=== PATIENT | female | born 1965 | race Caucasian/White ===

== ENCOUNTER 2021-02-12 00:50 | Emergency (ER) | payer OTHER, SELFPAY ==
[2021-02-12 00:53] VITALS: BP 174/125; PULSE 102; RESP 18; TEMP 36.7; O2SAT 98
--- NOTE | 2021-02-12 01:05 | ECG_ITS ---
Measurements Intervals [place] Rate: 94 P: 54 MO: 144 QRS: 44 QRSD: 77 T: 55 QT: 380 QTc: 476 Interpretive Statements SINUS RHYTHM NORMAL ECG Electronically Signed On 02-12-2021 7:18:08 CDT by John Borden D.O.
[2021-02-12] MEDS: SODIUM CHLORIDE 0.9% IV 1,000 ML 999 ML IV CONT (01:22)
[2021-02-12] MEDS: THIAMINE HCL 200 MG/2 ML VIAL 100 MG IV PUSH (01:23)
[2021-02-12] MEDS: LORazepam INJ (*CRX) 2 MG/ML VIAL 1 MG IV PUSH ×2 (01:24→02:47)
[2021-02-12 01:30] VITALS: BP 142/95; PULSE 95; RESP 18; O2SAT 99
[2021-02-12 01:32] VITALS: PULSE 90
[2021-02-12 01:36] LABS: Basophils Percent Auto 0.1 % (0.2-1.2); Eosinophils Percent Auto 0.1 % (0-4.4); Hematocrit 42.1 % (37.0-47.0); Hemoglobin 14.9 g/dL (12.0-15.0); Immature Granulocyte Absolute 0.02 K/mm3 (0.00-0.031); Immature Granulocyte Percent A 0.2 % (0-0.5); Lymphocytes Absolute Auto 2.11 K/mm3 (0.9-3.2); Lymphocytes Percent Auto 21.5 % (18.3-44.2); Mean Corpuscular HGB Conc 35.4 g/dl (32-36); Mean Corpuscular Volume 98.8 fl (80-100); Mean Platelet Volume 9.1 fl (7.4-10.4); Monocytes Absolute Auto 0.6 K/mm3 (0.1-0.6); Monocytes Percent Auto 6.1 % (2.6-8.5); Neutrophils Absolute Auto 7.1 K/mm3 (1.3-6.7); Platelet Count Result 240 k/mm3 (150-375); Red Blood Count 4.26 M/mm3 (4.2-5.4); Red Cell Distribution Width 12.5 % (11.5-14.5); White Blood Count 9.8 K/mm3 (4.5-10.0)
[2021-02-12 01:47] LABS: Partial Thromboplastin Time 26.8 SECONDS (22.3-36.8); Prothrombin Time 13.8 Seconds (11.1-14.7)
[2021-02-12 01:50] LABS: Ethanol < 10 mg/dL (<10)
[2021-02-12 01:51] LABS: Alanine Aminotransferase 56 U/L (4-35); Albumin Level 4.9 g/dL (3.5-5.1); Alkaline Phosphatase 228 U/L (38-126); Anion Gap 12 mmol/L (8-16); Aspartate Amino Transferase 95 U/L (14-36); Bilirubin,Total 0.8 mg/dL (0.2-1.3); Blood Urea Nitrogen 7 mg/dL (7-17); Calcium 9.7 mg/dL (8.4-10.2); Carbon Dioxide 30 mmol/L (22-30); Chloride 97 mmol/L (98-107); Estimated CRCL calculation 86 ml/min; Estimated Glomerular Filt Rate > 60; Glucose 124 mg/dL (65-105); Lipase 767 U/L (23-300); Sodium 139 mmol/L (137-145)
[2021-02-12 01:52] LABS: Lactic Acid Reflex 1.4 mmol/L (0.7-2.1)
[2021-02-12 02:00] VITALS: BP 142/105; PULSE 91; RESP 16; O2SAT 100
--- NOTE | 2021-02-12 02:00 | ED.GENADULT ---
HPI - General Adult General Chief complaint: Unspecified Stated complaint: not sleeping x 3 days Time Seen by Provider: 02/12/21 00:58 History of Present Illness HPI narrative: Patient is a 55-year-old female who presents the emergency department with chief complaint of anxiety and not sleeping. Patient reports that she decided to cut back drinking several days ago and is only had 2 drinks per day for the last several days. Patient states that she feels very anxious and has not been able to sleep. The patient states it has been approximately 3 days she has had more than 2 hours of sleep in any given day. Patient denies chest pain denies shortness of breath. Patient denies suicidal or homicidal ideation Related Data Allergies Allergy/AdvReac Type Severity Reaction Status Date / Time No Known Allergies Allergy Unknown Unverified 06/29/19 06:04 [facility] [place] Social History Social History Gender identity (if verbalized by the patient): Female Course Vital Signs Vital signs: Vital Signs Temperature 36.7 C 02/12/21 00:53 Pulse Rate 102 H 02/12/21 00:53 Respiratory Rate 18 02/12/21 00:53 Blood Pressure 174/125 H 02/12/21 00:53 Pulse Oximetry 98 02/12/21 00:53 Temperature 36.7 C 02/12/21 00:53 Pulse Rate 90 02/12/21 01:32 Respiratory Rate 18 02/12/21 00:53 Blood Pressure 174/125 H 02/12/21 00:53 Pulse Oximetry 98 02/12/21 00:53 Medical Decision Making Vital Signs Vital Signs: Vital Signs Temperature 36.7 C 02/12/21 00:53 Pulse Rate 102 H 02/12/21 00:53 Respiratory Rate 18 02/12/21 00:53 Blood Pressure 174/125 H 02/12/21 00:53 Pulse Oximetry 98 02/12/21 00:53 Temperature 36.7 C 02/12/21 00:53 Pulse Rate 90 02/12/21 01:32 Respiratory Rate 18 02/12/21 00:53 Blood Pressure 174/125 H 02/12/21 00:53 Pulse Oximetry 98 02/12/21 00:53 Lab Data Result diagrams: 02/12/21 01:29 02/12/21 01:29 Labs: Lab Results 02/12/21 02/12/21 02/12/21 Range/Units 01:29 01:29 01:29 WBC 9.8 (4.5-10.0) K/mm3 RBC 4.26 (4.2-5.4) M/mm3 Hgb 14.9 (12.0-15.0) g/dL Hct 42.1 (37.0-47.0) % MCV 98.8 (80-100) fl MCH 35.0 H (26-34) pg MCHC 35.4 (32-36) g/dl RDW 12.5 (11.5-14.5) % Plt Count 240 (150-375) k/mm3 MPV 9.1 (7.4-10.4) fl Immature Gran % (Auto) 0.2 (0-0.5) % Neut % (Auto) 72.0 (45.5-73.1) % Lymph % (Auto) 21.5 (18.3-44.2) % Curry % (Auto) 6.1 (2.6-8.5) % Eos % (Auto) 0.1 (0-4.4) % Baso % (Auto) 0.1 L (0.2-1.2) % Lymph # (Auto) 2.11 (0.9-3.2) K/mm3 Curry # (Auto) 0.6 (0.1-0.6) K/mm3 Eos # (Auto) 0.0 (0-0.3) K/mm3 Baso # (Auto) 0.0 (0.0-0.1) K/mm3 Abs Immat Gran (auto) 0.02 (0.00-0.031) K/mm3 Absolute Neuts (auto) 7.1 H (1.3-6.7) K/mm3 Absolute Nucleated RBC 0.0 (0.0-0.012) K/mm3 Nucleated RBC % 0.0 (0.0-0.2) % PT (11.1-14.7) Seconds INR APTT (22.3-36.8) SECONDS Sodium 139 (137-145) mmol/L Potassium 3.0 L (3.4-5.0) mmol/L Chloride 97 L (98-107) mmol/L Carbon Dioxide 30 (22-30) mmol/L Anion Gap 12 (8-16) mmol/L BUN 7 (7-17) mg/dL Creatinine 0.60 L (0.7-1.0) mg/dL Estim Creat Clear Calc 86 ml/min Estimated GFR > 60 (59 - ) Glucose 124 H (65-105) mg/dL Lactic Acid 1.4 (0.7-2.1) mmol/L Calcium 9.7 (8.4-10.2) mg/dL Total Bilirubin 0.8 (0.2-1.3) mg/dL AST 95 H (14-36) U/L ALT 56 H (4-35) U/L Alkaline Phosphatase 228 H (38-126) U/L Total Protein 9.0 H (6.3-8.2) g/dL Albumin 4.9 (3.5-5.1) g/dL Lipase 767 H (23-300) U/L Ethyl Alcohol (<10) mg/dL 02/12/21 02/12/21 Range/Units 01:29 01:29 WBC (4.5-10.0) K/mm3 RBC (4.2-5.4) M/mm3 Hgb (12.0-15.0) g/dL Hct (37.0-47.0) % MCV (80-100) fl MCH (26-34) pg MCHC (32-36) g/dl RDW (11.5-14.5) % Plt Count (150-375) k/mm3 MPV (7.4-10.
--- NOTE | 2021-02-12 02:15 | PC.NURSE ---
PT. unable to void at this time.
[2021-02-12 02:30] VITALS: BP 149/85; PULSE 84; RESP 14; O2SAT 98
[2021-02-12 03:00] VITALS: BP 118/62; PULSE 85; RESP 13; O2SAT 97
[2021-02-12 04:00] LABS: Appearance Urine Clear (Clear); Bilirubin Urine Negative (Negative); Blood Urine Negative (Negative); Color Urine Yellow (Yellow); Glucose Urine UA Negative (Negative); Ketones Urine Negative (Negative); Leukocyte Esterase Ur 1+ LEU/UL (Negative); Nitrate Urine Negative (Negative); Protein Urine 2+ mg/dL (Negative); Specific Grav Ur 1.015 (1.001-1.035); Urobilinogen Urine 0.2 mg/dL (<2.0)
[2021-02-12 04:12] LABS: RBC Urine 0-2 /hpf (0-2)
[2021-02-12 04:16] LABS: Add Urine Microscopic? YES
== END 2021-02-12 03:20 | disposition home or self-care (01) ==
PROVIDERS: Emergency Provider Emergency Medicine; PCP Internal Medicine Gastroenterology
DX: F41.9 Anxiety disorder, unspecified (principal); G47.00 Insomnia, unspecified; F10.10 Alcohol abuse, uncomplicated; Y90.0 Blood alcohol level of less than 20 mg/100 ml
CPT/HCPCS: 36415; 80053; 80307; 81001; 83605; 83690; 85025; 85610; 85730; 93005; 96361; 96374; 96375; 96376; 99284; J2060; J3411; J7030

== ENCOUNTER 2021-10-14 15:08 | Observation (INO) | payer OTHER, SELFPAY ==
[2021-10-14] VITALS (10 sets, daily range): BP systolic 120–134; BP diastolic 80–96; PULSE 90–104; RESP 9–20; TEMP 36.1–36.8; O2SAT 96–100; BMI 25.0
--- NOTE | ~2021-10-14 | CT_ITS ---
EXAMINATION: CT abdomen pelvis w con DATE: 10/14/2021 16:50 INDICATION: Upper abdominal pain. TECHNIQUE: Computed tomography (CT) of the abdomen and pelvis was performed with 100 mL Omnipaque 350 intravenous contrast. Automated exposure control and iterative reconstruction technique were employe d. The dose-length product was 257.34 mGy-cm. COMPARISON: CT abdomen and pelvis 06/29/2019, 06/16/19 FINDINGS: The visualized portions of the lung bases demonstrate mild atelectasis. No pleural effusion . The heart size is normal. No pericardial effusion. The liver demonstrates hypertrophy of left later al segment and surface nodularity, consistent with cirrhosis. The spleen is normal in size. The gallb ladder is normal. There are pancreatic calcifications and mild pancreatic duct dilatation, consistent with chronic pancreatitis. The adrenal glands and kidneys are normal. There are no dilated loops of bowel. The appendix is normal. There are no pathologically enlarged lymph nodes. There is no free int raperitoneal fluid. There is chronic scarring in the perineum on the left. There is mild thoracolumba r spondylosis. IMPRESSION: 1. Chronic pancreatitis. 2. Cirrhosis of the liver. Reviewed, dictated and finalized at location A. H THERAPIST
--- NOTE | 2021-10-14 15:13 | ED.ABDPAIN ---
HPI - Abdominal Pain General Chief Complaint: Abdominal Pain <Genoveva Tinoco MD - Last Filed: 10/14/21 16:30> Stated Complaint: pancreatic pain <Genoveva Tinoco MD - Last Filed: 10/14/21 16:30> Time Seen by Provider: 10/14/21 15:13 <Genoveva Tinoco MD - Last Filed: 10/14/21 16:30> Source: patient and RN notes reviewed <Genoveva Tinoco MD - Last Filed: 10/14/21 16:30> Mode of arrival: ambulatory <Genoveva Tinoco MD - Last Filed: 10/14/21 16:30> Limitations: no limitations <Genoveva Tinoco MD - Last Filed: 10/14/21 16:30> History of Present Illness HPI narrative: Patient presents with pain in the epigastric area radiating to her back, associated with nausea. Spasm, intermittent, started 4 days ago, constant in the last 24 hours. History of alcoholic pancreatitis. Patient is a smoker, had alcohol last night. Denies any drug use. Patient is fully vaccinated for COVID-19. <Genoveva Tinoco MD - Last Filed: 10/14/21 16:30> Related Data Home Medications: Home Medications Medication Instructions Recorded Confirmed multivitamin tablet 10/14/21 <Genoveva Tinoco MD - Last Filed: 10/14/21 16:30> Allergies/Adverse Reactions: Allergies Allergy/AdvReac Type Severity Reaction Status Date / Time No Known Allergies Allergy Unknown Unverified 10/14/21 15:42 <Genoveva Tinoco MD - Last Filed: 10/14/21 16:30> Review of Systems Review of Systems: CONSTITUTIONAL: Denies fever, chills, or sweats. EYES: Denies visual changes, redness, or discharge. ENT: Denies rhinorrhea, congestion, sore throat, or otalgia. CARDIOVASCULAR: Denies chest pain, palpitations, or edema. RESPIRATORY: Denies cough or dyspnea. GASTROINTESTINAL: Denies abdominal pain, nausea, vomiting, or diarrhea. GENITOURINARY: Denies dysuria or hematuria. SKIN: Denies rash or itching. MUSCULOSKELETAL: Denies back pain, joint pain, or myalgia. NEUROLOGIC: Denies headache, numbness, or weakness. PSYCHIATRIC: Denies anxiety or depression. <Genoveva Tinoco MD - Last Filed: 10/14/21 16:30> PMFSH Social History Social History: Social History Gender identity (if verbalized by the patient): Female <Genoveva Tinoco MD - Last Filed: 10/14/21 16:30> Exam Narrative: General appearance: Well-developed, well-nourished Skin: Normal color Head: Normocephalic, nontraumatic Eyes: Clear conjunctiva ENT: Oropharynx normal, ears normal, nose normal Neck: Supple, nontender Chest and respiratory: Airway patent, no respiratory distress, no accessory muscle use Heart: Regular rate/rhythm Abdomen: Soft, severe tenderness epigastric area Vascular: Normal peripheral pulses, normal capillary refill. Musculoskeletal: Normal range of motion, nontender back Neurologic: Alert and oriented ?3, [employer] is normal as tested, no gross motor deficit <Genoveva Tinoco MD - Last Filed: 10/14/21 16:30> Course Course Emergency Course: Assumed care of this patient at shift change with pending lab and CT findings. Patient continues to be in pain I did give her additional dose of her Dilaudid and Zofran. She states that that did not touch the pain. Discussed with the hospitalist agreed to admit patient for observation. <Dallin Corcoran MD - Last Filed: 10/14/21 18:19> Vital Signs Vital signs: Vital Signs Temperature 36.8 C 10/14/21 15:30 Pulse Rate 101 H 10/14/21 15:30 Respiratory Rate 16 10/14/21 15:30 Blood Pressure 133/96 H 10/14/21 15:30 Pulse Oximetry 96 10/14/21 15:30 Temperature 36.8 C 10/14/21 15:30 Pulse Rate 101 H 10/14/21 15:30 Respiratory Rate 16 10/14/21 15:30 Blood P
[2021-10-14] MEDS: MORPHINE SULFATE (*CRX) 4 MG/ML INJ IV PUSH (15:58)
[2021-10-14] MEDS: SODIUM CHLORIDE 0.9% IV 1,000 ML 999 ML IV CONT (15:58)
[2021-10-14] MEDS: ONDANSETRON INJ 4 MG/2 ML VIAL IV PUSH ×3 (15:58→21:08)
[2021-10-14 16:01] LABS: Basophils Percent Auto 0.3 % (0.2-1.2); Eosinophils Absolute Auto 0.1 K/mm3 (0-0.3); Eosinophils Percent Auto 1.2 % (0-4.4); Hematocrit 42.8 % (37.0-47.0); Hemoglobin 15.1 g/dL (12.0-15.0); Immature Granulocyte Absolute 0.01 K/mm3 (0.00-0.031); Immature Granulocyte Percent A 0.1 % (0-0.5); Lymphocytes Absolute Auto 3.46 K/mm3 (0.9-3.2); Mean Corpuscular HGB Conc 35.3 g/dl (32-36); Mean Corpuscular Hemoglobin 35.1 pg (26-34); Mean Corpuscular Volume 99.5 fl (80-100); Mean Platelet Volume 9.2 fl (7.4-10.4); Monocytes Absolute Auto 0.5 K/mm3 (0.1-0.6); Monocytes Percent Auto 5.1 % (2.6-8.5); Neutrophils Absolute Auto 5.3 K/mm3 (1.3-6.7); Neutrophils Percent Auto 56.3 % (45.5-73.1); Platelet Count Result 215 k/mm3 (150-375); Red Cell Distribution Width 12.6 % (11.5-14.5); White Blood Count 9.4 K/mm3 (4.5-10.0)
[2021-10-14 16:13] LABS: Add Urine Microscopic? YES; Alanine Aminotransferase 29 U/L (4-35); Albumin Level 4.7 g/dL (3.5-5.1); Alkaline Phosphatase 142 U/L (38-126); Anion Gap 13 mmol/L (8-16); Appearance Urine Clear (Clear); Aspartate Amino Transferase 53 U/L (14-36); Bacteria Urine 3+ /hpf; Bilirubin Urine Negative (Negative); Bilirubin,Total 0.6 mg/dL (0.2-1.3); Blood Urea Nitrogen 9 mg/dL (7-17); Blood Urine Negative (Negative); Calcium 9.6 mg/dL (8.4-10.2); Carbon Dioxide 24 mmol/L (22-30); Chloride 106 mmol/L (98-107); Color Urine Yellow (Yellow); Estimated CRCL calculation 87 ml/min; Estimated Glomerular Filt Rate > 60; Glucose 98 mg/dL (65-110); Glucose Urine UA Negative (Negative); Ketones Urine Negative (Negative); Leukocyte Esterase Ur Trace LEU/UL (Negative); Lipase 295 U/L (23-300); Nitrate Urine Negative (Negative); Potassium 3.4 mmol/L (3.4-5.0); Protein Urine Negative (Negative); RBC Urine 0-2 /hpf (0-2); Sodium 143 mmol/L (137-145); Specific Grav Ur 1.006 (1.001-1.035); Squamous Epithelial Cell Urine Occasional /hpf (Few); Urobilinogen Urine Negative mg/dL (<2.0)
[2021-10-14] MEDS: HYDROmorphone HCL INJ (*CRX) 1 MG/ML SYR IV PUSH (16:59)
[2021-10-14 17:24] LABS: Ethanol 177 mg/dL (<10)
--- NOTE | 2021-10-14 19:30 | PM.IMHP ---
H&P: HPI History of Present Illness Date/Time: 10/14/21 19:30 Chief Complaint: Abdominal pain. Narrative: This is a 56-year-old female smoker with history of alcohol abuse including history of alcohol withdrawal seizures and delirium tremens, chronic pancreatitis, history of necrotizing pancreatitis with pseudocysts, and cirrhosis of the liver who presented to the emergency department earlier today from home for evaluation of abdominal pain. She has daily pain that she attributes to her chronic pancreatitis however it has gotten much worse over the past several days. She has a difficult time describing the pain but reports that is occasionally burning in nature. The pain radiates around to the left mid back and she gives no significant aggravating factors, specifically denying that is worse with food. She has received some relief with Dilaudid received in the emergency department. Additionally she has had loose stools but she reports that is not unusual for her on that she frequently has to take Imodium. Her abdomen is intermittently bloated and she does endorse increase in belching recently. She does not take pancreatic enzymes at home. She has not had any nausea or vomiting. No significant GERD symptoms. No known history of gastritis or peptic ulcers. No fever, chills, or sweats. Review of Systems Review of Systems: Twelve systems were reviewed. No recent cold or flu symptoms. She denies chest pain shortness of breath. No cough. No melena or hematochezia. No dysuria. Patient endorses a history of alcohol withdrawal seizures and delirium tremens. She denies tremors, sweats, and hallucinations at this time. Her last drink was around noon today. Except as documented, all other systems were reviewed and are negative. [facility] Past Medical History Medical History (Updated 10/14/21 @ 21:54 by Elly Nj PA-C) Alcohol abuse Alcohol abuse Alcohol withdrawal seizure Chronic pancreatitis Cirrhosis of liver Delirium tremens Necrotizing pancreatitis (2019) Pseudocyst of pancreas (2019) Tobacco dependence Vulvar cancer (2019) Surgical History Surgical History (Updated 10/14/21 @ 21:49 by Elly Nj PA-C) History of section History of endoscopic retrograde cholangiopancreatography With history of stent placement. History of gynecologic surgery Resection of vulvar cancer. History of partial hysterectomy Family History Family History Mother Emphysema lung Father Parkinson disease Social History Social History (Updated 10/14/21 @ 21:52 by Elly Nj PA-C) Social History: Surrogate decision maker: Efrain Stern (son) or Mark Aguayohley (significant other). Code status: Full code. Smoking packs per day: 1 Smoking cigarettes per day: 20.0 Smoking status: Current every day smoker Tobacco type: cigarettes Alcohol intake: current Alcohol use details: 4-6 shots of rum per day. Substance use: never Additional living arrangements comments: The patient lives in [place]. Meds Home Medications and Allergies Home Medications Medication Instructions Recorded Confirmed Type multivitamin tablet 10/14/21 History Allergies Allergy/AdvReac Type Severity Reaction Status Date / Time No Known Allergies Allergy Unknown Unverified 10/14/21 15:42 Vital Signs Vital Signs - 24 hr 10/14/21 15:30 10/14/21 15:31 10/14/21 16:01 Temperature 98.2 F Pulse Rate 101 H 104 H 97 Respiratory Rate 16 9 L 14 Blood Pressure 133/96 H 124/94 H 130/89 Pulse Oximetry 96 98 98 10/14/21 16:31 10/14/21 16:48 10/14/21 17:02 Temperature Pulse Rate 95 95 90 Respiratory Rate 14 9 L 9 L Blood Pressure 123/80 134/82 120/86 Pulse Oximetry 97 98 10/14/21 18:30 10/14/21 19:25 10/14/21 19:53 Temperature Pulse Rate 96 100 96 Respiratory Rate 9 L 20 20 Blood Pressure 126/92 H 126/90 Pulse Oximetry 100 99 Exam N
--- NOTE | 2021-10-14 19:55 | ADMGEN ---
This patient, Marjorie Smith, was admitted to 2 Medical Room 241-. Patient/family oriented to hospital policies and general routines including ID bracelet, bed and alarms, visiting hours, pain management, procedures, bathroom and other care routines, personal items, smoking policy, room service/diet, and visiting hours. Information on how to activate the Rapid Response Team has been discussed. Patient/Family are encouraged to report perceived risks to care and to ask questions if they do not understand what they are told or what they should do.
[2021-10-14] MEDS: FAMOTIDINE 20 MG/2 ML VIAL IV PUSH (21:08)
[2021-10-14] MEDS: SODIUM CHLORIDE 0.9% IV 1,000 ML 125 ML IV CONT (21:08)
[2021-10-14] MEDS: HYDROmorphone HCL INJ (*CRX) 1 MG/ML SYR 0.5 MG IV PUSH (21:08)
[2021-10-14] MEDS: THIAMINE HCL 200 MG/2 ML VIAL 100 MG IV PUSH (21:59)
[2021-10-14] MEDS: chlordiazePOXIDE (*CRX) 25 MG CAPSULE PO (21:59)
[2021-10-15] VITALS (7 sets, daily range): BP systolic 106–131; BP diastolic 53–88; PULSE 72–85; RESP 16–20; TEMP 36.2–36.3; O2SAT 98–99
[2021-10-15] MEDS: HYDROmorphone HCL INJ (*CRX) 1 MG/ML SYR 0.5 MG IV PUSH ×6 (00:16→20:11)
[2021-10-15] MEDS: chlordiazePOXIDE (*CRX) 25 MG CAPSULE PO ×2 (04:21→13:43)
[2021-10-15] MEDS: SODIUM CHLORIDE 0.9% IV 1,000 ML 125 ML IV CONT ×3 (04:21→20:04)
[2021-10-15 05:36] LABS: Basophils Percent Auto 0.5 % (0.2-1.2); Eosinophils Absolute Auto 0.2 K/mm3 (0-0.3); Eosinophils Percent Auto 3.8 % (0-4.4); Hematocrit 38.2 % (37.0-47.0); Immature Granulocyte Absolute 0.01 K/mm3 (0.00-0.031); Immature Granulocyte Percent A 0.2 % (0-0.5); Lymphocytes Absolute Auto 2.95 K/mm3 (0.9-3.2); Lymphocytes Percent Auto 46.7 % (18.3-44.2); Mean Corpuscular Hemoglobin 35.2 pg (26-34); Mean Corpuscular Volume 103.5 fl (80-100); Mean Platelet Volume 9.5 fl (7.4-10.4); Monocytes Absolute Auto 0.4 K/mm3 (0.1-0.6); Monocytes Percent Auto 5.5 % (2.6-8.5); Neutrophils Absolute Auto 2.7 K/mm3 (1.3-6.7); Neutrophils Percent Auto 43.3 % (45.5-73.1); Platelet Count Result 177 k/mm3 (150-375); Red Blood Count 3.69 M/mm3 (4.2-5.4); Red Cell Distribution Width 12.6 % (11.5-14.5); White Blood Count 6.3 K/mm3 (4.5-10.0)
[2021-10-15 05:55] LABS: Alanine Aminotransferase 24 U/L (4-35); Albumin Level 3.6 g/dL (3.5-5.1); Alkaline Phosphatase 109 U/L (38-126); Anion Gap 4 mmol/L (8-16); Aspartate Amino Transferase 46 U/L (14-36); Bilirubin,Total 0.7 mg/dL (0.2-1.3); Blood Urea Nitrogen 12 mg/dL (7-17); Calcium 8.2 mg/dL (8.4-10.2); Carbon Dioxide 26 mmol/L (22-30); Chloride 111 mmol/L (98-107); Estimated CRCL calculation 84 ml/min; Estimated Glomerular Filt Rate > 60; Glucose 88 mg/dL (65-110); Lipase 211 U/L (23-300); Magnesium 1.7 mg/dL (1.6-2.3); Phosphorus 4.2 mg/dL (2.5-4.5); Potassium 4.3 mmol/L (3.4-5.0); Sodium 141 mmol/L (137-145)
[2021-10-15] MEDS: FOLIC ACID 1 MG TABLET PO (08:10)
[2021-10-15] MEDS: THIAMINE HCL 100 MG TABLET PO (08:10)
[2021-10-15] MEDS: THERAPEUTIC MULTIVITAMINS/MINERALS TAB (*BKC) 1 TABLET PO (08:10)
[2021-10-15] MEDS: FAMOTIDINE 20 MG/2 ML VIAL IV PUSH ×2 (08:10→20:02)
--- NOTE | 2021-10-15 08:20 | P.PNIM_ITS ---
Progress Note: A&P Assessment and Plan (1) Abdominal pain: Qualifiers: Abdominal location: epigastric Qualified Code(s): R10.13 - Epigastric pain Code(s): R10.9 - Unspecified abdominal pain Status: Acute Assessment and Plan: * chronic pain related to chronic pancreatitis, with worsening pain over the last couple of days * CT of the abdomen pelvis showed evidence of chronic pancreatitis and her lipase level is within normal limits. A * bowel rest, IV fluid rehydration, and analgesics as needed. * Pepcid b.i.d.. * Consider GI consult to evaluate other etiologies (esophagitis, gastritis, ulcers) * Still drinking * NPO for now * Trend lipase, current to 11 (2) Pancreatitis: Qualifiers: Acute pancreatitis complication: no infection or necrosis Chronicity: acute Pancreatitis type: alcohol induced Qualified Code(s): K85.20 - Alcohol induced acute pancreatitis without necrosis or infection Code(s): K85.90 - Acute pancreatitis without necrosis or infection, unspecified Status: Acute Assessment and Plan: * chronic pancreatitis as detailed above. * history of necrotizing pancreatitis and pseudocyst * Plan is as detailed above. (3) Alcohol abuse: Code(s): F10.10 - Alcohol abuse, uncomplicated Status: Acute Assessment and Plan: * Reports still drinking 2-4 drinks per night * history of alcohol withdrawal seizures and delirium tremens. * p.r.n. Librium per [facility] protocol. * thiamine and folic acid supplementation. * Given her pancreatitis and cirrhosis it is imperative that she cease drinking altogether. (4) Tobacco dependence: Code(s): F17.200 - Nicotine dependence, unspecified, uncomplicated Status: Acute Assessment and Plan: * Nicotine patch is available if needed * Will need cessation, however, drinking cessation should be priority (5) Cirrhosis of liver: Code(s): K74.60 - Unspecified cirrhosis of liver Status: Acute Assessment and Plan: * No evidence of decompensation. (6) Abnormal urinalysis: Code(s): R82.90 - Unspecified abnormal findings in urine Status: Acute Assessment and Plan: * UA showed leuk go site esterase trace amounts, 10-15 white blood cells, urine bacteria 3+ * no symptoms to suggest UTI. * Hold on antibiotics for now Time Spent With Patient Time with patient: 25 - 35 minutes Subjective Date/time seen: 11/18/21 0820 Interval history: Date/Time: 10/14/21 19:30 Narrative: This is a 56-year-old female smoker with history of alcohol abuse including history of alcohol withdrawal seizures and delirium tremens, chronic pancreatitis, history of necrotizing pancreatitis with pseudocysts, and cirrhosis of the liver who presented to the emergency department earlier today from home for evaluation of abdominal pain. She has daily pain that she attributes to her chronic pancreatitis however it has gotten much worse over the past several days. She has a difficult time describing the pain but reports that is occasionally burning in nature. The pain radiates around to the left mid back and she gives no significant aggravating factors, specifically denying that is worse with food. She has received some relief with Dilaudid received in the emergency department. Additionally she has had loose stools but she reports that is not unusual for her on that she frequently has to take Imodium. Her abdomen is intermittently bloated and she does endorse increase in belching recently. She d
--- NOTE | 2021-10-15 08:20 | PM.IMPN ---
Progress Note: A&P Assessment and Plan (1) Abdominal pain: Qualifiers: Abdominal location: epigastric Qualified Code(s): R10.13 - Epigastric pain Code(s): R10.9 - Unspecified abdominal pain Status: Acute Assessment and Plan: chronic pain related to chronic pancreatitis, with worsening pain over the last couple of days CT of the abdomen pelvis showed evidence of chronic pancreatitis and her lipase level is within normal limits. A bowel rest, IV fluid rehydration, and analgesics as needed. Pepcid b.i.d.. Consider GI consult to evaluate other etiologies (esophagitis, gastritis, ulcers) Still drinking NPO for now Trend lipase, current to 11 (2) Pancreatitis: Qualifiers: Acute pancreatitis complication: no infection or necrosis Chronicity: acute Pancreatitis type: alcohol induced Qualified Code(s): K85.20 - Alcohol induced acute pancreatitis without necrosis or infection Code(s): K85.90 - Acute pancreatitis without necrosis or infection, unspecified Status: Acute Assessment and Plan: chronic pancreatitis as detailed above. history of necrotizing pancreatitis and pseudocyst Plan is as detailed above. (3) Alcohol abuse: Code(s): F10.10 - Alcohol abuse, uncomplicated Status: Acute Assessment and Plan: Reports still drinking 2-4 drinks per night history of alcohol withdrawal seizures and delirium tremens. p.r.n. Librium per [facility] protocol. thiamine and folic acid supplementation. Given her pancreatitis and cirrhosis it is imperative that she cease drinking altogether. (4) Tobacco dependence: Code(s): F17.200 - Nicotine dependence, unspecified, uncomplicated Status: Acute Assessment and Plan: Nicotine patch is available if needed Will need cessation, however, drinking cessation should be priority (5) Cirrhosis of liver: Code(s): K74.60 - Unspecified cirrhosis of liver Status: Acute Assessment and Plan: No evidence of decompensation. (6) Abnormal urinalysis: Code(s): R82.90 - Unspecified abnormal findings in urine Status: Acute Assessment and Plan: UA showed leuk go site esterase trace amounts, 10-15 white blood cells, urine bacteria 3+ no symptoms to suggest UTI. Hold on antibiotics for now Time Spent With Patient Time with patient: 25 - 35 minutes Subjective Date/time seen: 10/15/21 0820 Interval history: Date/Time: 10/14/21 19:30 Narrative: This is a 56-year-old female smoker with history of alcohol abuse including history of alcohol withdrawal seizures and delirium tremens, chronic pancreatitis, history of necrotizing pancreatitis with pseudocysts, and cirrhosis of the liver who presented to the emergency department earlier today from home for evaluation of abdominal pain. She has daily pain that she attributes to her chronic pancreatitis however it has gotten much worse over the past several days. She has a difficult time describing the pain but reports that is occasionally burning in nature. The pain radiates around to the left mid back and she gives no significant aggravating factors, specifically denying that is worse with food. She has received some relief with Dilaudid received in the emergency department. Additionally she has had loose stools but she reports that is not unusual for her on that she frequently has to take Imodium. Her abdomen is intermittently bloated and she does endorse increase in belching recently. She does not take pancreatic enzymes at home. She has not had any nausea or vomiting. No significant GERD symptoms. No known history of gastritis or peptic ulcers. No fever, chills, or sweats. Date/time: 10/15/2021 at 8:20 a.m. Patient is resting comfortably in bed. She does state that she is having abdominal pain that is an 8/10. She states that is better than when she came in however it is still pretty intense. Lukasz
[2021-10-15] MEDS: chlordiazePOXIDE (*CRX) 25 MG CAPSULE 50 MG PO (20:03)
[2021-10-16] MEDS: HYDROmorphone HCL INJ (*CRX) 1 MG/ML SYR 0.5 MG IV PUSH ×3 (00:38→06:46)
[2021-10-16] MEDS: chlordiazePOXIDE (*CRX) 25 MG CAPSULE 50 MG PO ×2 (01:57→08:19)
[2021-10-16 03:09] VITALS: BP 114/70; PULSE 65; RESP 17; TEMP 36.6; O2SAT 99
[2021-10-16] MEDS: SODIUM CHLORIDE 0.9% IV 1,000 ML 125 ML IV CONT (03:49)
[2021-10-16 04:00] VITALS: BP 114/70
[2021-10-16 05:20] LABS: Basophils Percent Auto 0.4 % (0.2-1.2); Eosinophils Absolute Auto 0.2 K/mm3 (0-0.3); Eosinophils Percent Auto 3.6 % (0-4.4); Hematocrit 35.9 % (37.0-47.0); Hemoglobin 12.5 g/dL (12.0-15.0); Immature Granulocyte Absolute 0.02 K/mm3 (0.00-0.031); Immature Granulocyte Percent A 0.4 % (0-0.5); Lymphocytes Absolute Auto 2.12 K/mm3 (0.9-3.2); Lymphocytes Percent Auto 40.7 % (18.3-44.2); Mean Corpuscular HGB Conc 34.8 g/dl (32-36); Mean Corpuscular Hemoglobin 36.1 pg (26-34); Mean Corpuscular Volume 103.8 fl (80-100); Mean Platelet Volume 9.3 fl (7.4-10.4); Monocytes Absolute Auto 0.3 K/mm3 (0.1-0.6); Neutrophils Absolute Auto 2.6 K/mm3 (1.3-6.7); Neutrophils Percent Auto 48.9 % (45.5-73.1); Platelet Count Result 133 k/mm3 (150-375); Red Blood Count 3.46 M/mm3 (4.2-5.4); Red Cell Distribution Width 12.2 % (11.5-14.5); White Blood Count 5.2 K/mm3 (4.5-10.0)
[2021-10-16 05:29] LABS: Alanine Aminotransferase 24 U/L (4-35); Albumin Level 3.4 g/dL (3.5-5.1); Alkaline Phosphatase 117 U/L (38-126); Anion Gap 9 mmol/L (8-16); Aspartate Amino Transferase 48 U/L (14-36); Bilirubin,Total 0.7 mg/dL (0.2-1.3); Blood Urea Nitrogen 9 mg/dL (7-17); Calcium 8.5 mg/dL (8.4-10.2); Carbon Dioxide 22 mmol/L (22-30); Chloride 110 mmol/L (98-107); Estimated CRCL calculation 84 ml/min; Estimated Glomerular Filt Rate > 60; Glucose 79 mg/dL (65-110); Magnesium 1.7 mg/dL (1.6-2.3); Sodium 141 mmol/L (137-145)
[2021-10-16 07:46] LABS: Lipase 283 U/L (23-300)
[2021-10-16] MEDS: FAMOTIDINE 20 MG/2 ML VIAL IV PUSH (08:19)
[2021-10-16] MEDS: FOLIC ACID 1 MG TABLET PO (08:19)
[2021-10-16] MEDS: THIAMINE HCL 100 MG TABLET PO (08:19)
[2021-10-16] MEDS: THERAPEUTIC MULTIVITAMINS/MINERALS TAB (*BKC) 1 TABLET PO (08:19)
[2021-10-16] MEDS: MAGNESIUM SULF 2 GM/WATER 50ML 2 GM/50 ML BAG IVPB (08:19)
--- NOTE | 2021-10-16 09:00 | P.DS_ITS ---
DS: Admitting Diagnosis Discharge Date Date of service 08/16/2021 at 0900 Admitting Diagnosis Acute on chronic Pancreatitis DS: Discharge Diagnosis Discharge Diagnosis (1) Abdominal pain: Qualifiers: Abdominal location: epigastric Qualified Code(s): R10.13 - Epigastric pain Code(s): R10.9 - Unspecified abdominal pain Status: Acute Assessment and Plan: * chronic pain related to chronic pancreatitis, with worsening pain over the last couple of days * CT of the abdomen pelvis showed evidence of chronic pancreatitis and her lipase level is within normal limits. A * bowel rest, IV fluid rehydration, and analgesics as needed. * Pepcid b.i.d.. * Consider GI consult to evaluate other etiologies (esophagitis, gastritis, ulcers) * Still drinking * NPO for now * Trend lipase, current 283 (2) Pancreatitis: Qualifiers: Acute pancreatitis complication: no infection or necrosis Chronicity: acute Pancreatitis type: alcohol induced Qualified Code(s): K85.20 - Alcohol induced acute pancreatitis without necrosis or infection Code(s): K85.90 - Acute pancreatitis without necrosis or infection, unspecified Status: Acute Assessment and Plan: * chronic pancreatitis as detailed above. * history of necrotizing pancreatitis and pseudocyst * Plan is as detailed above. (3) Alcohol abuse: Code(s): F10.10 - Alcohol abuse, uncomplicated Status: Acute Assessment and Plan: * Reports still drinking 2-4 drinks per night * history of alcohol withdrawal seizures and delirium tremens. * p.r.n. Librium per [facility] protocol. * thiamine and folic acid supplementation. * Given her pancreatitis and cirrhosis it is imperative that she cease drinking altogether. (4) Tobacco dependence: Code(s): F17.200 - Nicotine dependence, unspecified, uncomplicated Status: Acute Assessment and Plan: * Nicotine patch is available if needed * Will need cessation, however, drinking cessation should be priority (5) Cirrhosis of liver: Code(s): K74.60 - Unspecified cirrhosis of liver Status: Acute Assessment and Plan: * No evidence of decompensation. (6) Abnormal urinalysis: Code(s): R82.90 - Unspecified abnormal findings in urine Status: Acute Assessment and Plan: * UA showed leuk go site esterase trace amounts, 10-15 white blood cells, urine bacteria 3+ * no symptoms to suggest UTI. * Hold on antibiotics for now DS: Summary Hospital Course Hospital Course: Patient is a 56-year-old female with a past medical history of alcohol abuse, pancreatitis, cirrhosis of liver presented to the emergency room with complaints of abdominal pain. Upon admission patient was treated with IV fluids. Lipase since admission has been at the highest of 295. Patient feels better and she is ready to go home today. Labs and lipase were been trended. Patient's urine suggests that she could have a UTI and cultures grew Gram- negative bacilli. Patient has been counseled about the need to quit drinking. Patient has a diet was advanced to low-fat which she has tolerated well. Kath jane was also treated with Librium and Ativan for alcohol withdrawal. Magnesium was low today at 1.7 replaced with 2 g and IV. Today patient is feeling better. She is eating okay and tolerating fluids. She is states that she is just really tired today. Patient denies chest pain, shortness of breath, nausea, vomiting, sweats, fevers, chills. Labs have been stable in re
--- NOTE | 2021-10-16 09:00 | PM.DS ---
DS: Admitting Diagnosis Discharge Date Date of service 08/16/2021 at 0900 Admitting Diagnosis Acute on chronic Pancreatitis DS: Discharge Diagnosis Discharge Diagnosis (1) Abdominal pain: Qualifiers: Abdominal location: epigastric Qualified Code(s): R10.13 - Epigastric pain Code(s): R10.9 - Unspecified abdominal pain Status: Acute Assessment and Plan: chronic pain related to chronic pancreatitis, with worsening pain over the last couple of days CT of the abdomen pelvis showed evidence of chronic pancreatitis and her lipase level is within normal limits. A bowel rest, IV fluid rehydration, and analgesics as needed. Pepcid b.i.d.. Consider GI consult to evaluate other etiologies (esophagitis, gastritis, ulcers) Still drinking NPO for now Trend lipase, current 283 (2) Pancreatitis: Qualifiers: Acute pancreatitis complication: no infection or necrosis Chronicity: acute Pancreatitis type: alcohol induced Qualified Code(s): K85.20 - Alcohol induced acute pancreatitis without necrosis or infection Code(s): K85.90 - Acute pancreatitis without necrosis or infection, unspecified Status: Acute Assessment and Plan: chronic pancreatitis as detailed above. history of necrotizing pancreatitis and pseudocyst Plan is as detailed above. (3) Alcohol abuse: Code(s): F10.10 - Alcohol abuse, uncomplicated Status: Acute Assessment and Plan: Reports still drinking 2-4 drinks per night history of alcohol withdrawal seizures and delirium tremens. p.r.n. Librium per [facility] protocol. thiamine and folic acid supplementation. Given her pancreatitis and cirrhosis it is imperative that she cease drinking altogether. (4) Tobacco dependence: Code(s): F17.200 - Nicotine dependence, unspecified, uncomplicated Status: Acute Assessment and Plan: Nicotine patch is available if needed Will need cessation, however, drinking cessation should be priority (5) Cirrhosis of liver: Code(s): K74.60 - Unspecified cirrhosis of liver Status: Acute Assessment and Plan: No evidence of decompensation. (6) Abnormal urinalysis: Code(s): R82.90 - Unspecified abnormal findings in urine Status: Acute Assessment and Plan: UA showed leuk go site esterase trace amounts, 10-15 white blood cells, urine bacteria 3+ no symptoms to suggest UTI. Hold on antibiotics for now DS: Summary Hospital Course Hospital Course: Patient is a 56-year-old female with a past medical history of alcohol abuse, pancreatitis, cirrhosis of liver presented to the emergency room with complaints of abdominal pain. Upon admission patient was treated with IV fluids. Lipase since admission has been at the highest of 295. Patient feels better and she is ready to go home today. Labs and lipase were been trended. Patient's urine suggests that she could have a UTI and cultures grew Gram-negative bacilli. Patient has been counseled about the need to quit drinking. Patient has a diet was advanced to low-fat which she has tolerated well. Patient was also treated with Librium and Ativan for alcohol withdrawal. Magnesium was low today at 1.7 replaced with 2 g and IV. Today patient is feeling better. She is eating okay and tolerating fluids. She is states that she is just really tired today. Patient denies chest pain, shortness of breath, nausea, vomiting, sweats, fevers, chills. Labs have been stable in remained stable throughout the visit. Time spent discussing smoking cessation with patient: more than 10 minutes Status at Discharge Functional status at discharge: independent ambulation Overall status at discharge: patient is progressing back to baseline Time Spent with Patient Time attestation: Total time spent providing and/or coordinating discharge services: 46 minutes Time spent: Greater than 30 minutes Exam C
== END 2021-10-16 12:40 | disposition home or self-care (01) ==
LOC: ANHED 18:19 → ANH2MED 23:01
PROVIDERS: Emergency Medicine; Nurse Practitioner; Physician Assistant; Admitting Provider Family Medicine; Emergency Provider Family Medicine; PCP Internal Medicine Gastroenterology; Visit Provider Internal Medicine
DX: K85.20 Alcohol induced acute pancreatitis without necrosis or infection (principal); K86.0 Alcohol-induced chronic pancreatitis; K74.60 Unspecified cirrhosis of liver; R82.90 Unspecified abnormal findings in urine; R10.13 Epigastric pain; E86.0 Dehydration; F10.10 Alcohol abuse, uncomplicated; F17.210 Nicotine dependence, cigarettes, uncomplicated
CPT/HCPCS: 36415; 74177; 80048; 80053; 80076; 80307; 81001; 83690; 83735; 84100; 85025; 87077; 87086; 87088; 87186; 96361; 96374; 96375; 96376; 99285; A9270; G0378; G0379; J1170; J2270; J2405; J3411; J3475; J7030; Q9967

== ENCOUNTER 2022-03-13 18:53 | Emergency (ER) | payer OTHER, SELFPAY ==
--- NOTE | ~2022-03-13 | CT_ITS ---
EXAMINATION: CT abdomen pelvis w con DATE: 03/13/2022 20:50 INDICATION: abdominal pain, hsx of pancreatitis TECHNIQUE: Computed tomography (CT) of the abdomen and pelvis was performed with 100 mL Omnipaque-350 intravenous contrast. Automated exposure control and iterative reconstruction technique were employe d. The dose-length product was 354.87 mGy-cm. COMPARISON: 10/14/2021. FINDINGS: Lower thorax: Basilar atelectasis. Liver: Hepatomegaly. Scattered subcentimeter hypodensities, too small to characterize but likely repr esent cysts. Biliary/Gallbladder: Gallbladder is normal. No bile duct dilation. Spleen: Mild enlargement. Pancreas: Scattered coarse calcifications. Stable pancreatic duct dilation. Mild inflammatory strandi ng at the pancreatic head. Adrenals:No mass. Kidneys: No mass, stone, or hydronephrosis. GI tract: Mild distal esophageal and gastric wall edema, with more pronounced antral wall edema. Subm ucosal fatty infiltration in the colon. No small or large bowel dilation. Normal appendix. Mesentery/Peritoneum: No ascites, mass, or free air. Enlarged remedios hepatic lymph nodes measuring up to 14 mm in short axis diameter. Retroperitoneum: No mass. Pelvis: Bladder wall thickening, otherwise the pelvic organs are within normal limits. 11 mm left ext ernal iliac lymph node. Bones/Soft Tissues: Soft tissues and body wall unremarkable. No acute osseous finding. Additional Findings: None. IMPRESSION: Mild inflammatory stranding at the pancreatic head, may represent acute on chronic pancreatitis in th e appropriate clinical context. Antral gastritis. Remedios hepatic lymphadenopathy. Left external iliac lymphadenopathy. Possible cystitis. Reviewed, dictated and finalized at location K. 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 Antral gastritis. Remedios h epatic lymphadenopathy. Left external iliac lymphadenopathy. Possible cystitis.
[2022-03-13 18:55] VITALS: BP 105/81; PULSE 100; RESP 16; TEMP 36.4; O2SAT 100
--- NOTE | 2022-03-13 19:10 | ED.ABDPAIN ---
HPI - Abdominal Pain General Chief Complaint: Abdominal Pain Stated Complaint: abdominal pain, rash Time Seen by Provider: 03/13/22 18:58 Source: patient Mode of arrival: ambulatory History of Present Illness HPI narrative: 56-year-old female history of liver disease and pancreatitis presents to the emergency department complaining of generalized and mid abdominal pain. Patient states over the last 2 months she has been drinking more heavily. Patient began developing abdominal pain a few days ago. Patient states that the pain radiates from her back to her abdomen. Patient does admit to drinking daily and heavier over the last 2 months due to living changes. Patient reports that she began developing a rash to her left leg yesterday. She reports the rash and painful and warm. Denies any itching. Patient does have a recent hospitalization for pancreatitis. Related Data Home Medications Medication Instructions Recorded Confirmed escitalopram oxalate 10 mg PO DAILY 03/13/22 03/13/22 hydrocodone-acetaminophen 7.5 - 325 tablet PO Q6H 03/13/22 03/13/22 Allergies Allergy/AdvReac Type Severity Reaction Status Date / Time No Known Allergies Allergy Unknown Verified 03/13/22 19:06 Review of Systems Review of Systems: CONSTITUTIONAL: Denies fever, chills, or sweats. EYES: Denies visual changes, redness, or discharge. ENT: Denies rhinorrhea, congestion, sore throat, or otalgia. CARDIOVASCULAR: Denies chest pain, palpitations, or edema. RESPIRATORY: Denies cough or dyspnea. GASTROINTESTINAL: Denies abdominal pain, nausea, vomiting, or diarrhea. GENITOURINARY: Denies dysuria or hematuria. SKIN: Denies rash or itching. MUSCULOSKELETAL: Denies back pain, joint pain, or myalgia. NEUROLOGIC: Denies headache, numbness, or weakness. [facility] Past Medical History Medical History (Updated 03/13/22 @ 22:15 by Julio Dahl MD) Alcohol abuse Alcohol abuse Alcohol withdrawal seizure Chronic pancreatitis Cirrhosis of liver Delirium tremens Necrotizing pancreatitis (2019) Pseudocyst of pancreas (2019) Tobacco dependence Vulvar cancer (2019) Surgical History Surgical History (Updated 10/14/21 @ 21:49 by Elly Nj PA-C) History of section History of endoscopic retrograde cholangiopancreatography With history of stent placement. History of gynecologic surgery Resection of vulvar cancer. History of partial hysterectomy Family History Family History Mother Emphysema lung Father Parkinson disease Social History Social History (Updated 10/14/21 @ 21:52 by Elly Nj PA-C) Social History: Surrogate decision maker: Efrain Stern (son) or Mark Duran (significant other). Code status: Full code. Smoking packs per day: 1 Smoking cigarettes per day: 20.0 Smoking status: Current every day smoker Tobacco type: cigarettes Alcohol intake: current Alcohol use details: 4-6 shots of rum per day. Substance use: never Additional living arrangements comments: The patient lives in [place]. Exam Narrative: APPEARANCE: Well appearing, no pain, no distress, well-nourished. HEAD: normocephalic, atraumatic. EYES: PERRLA/EOMI, conjunctivae clear. NOSE: Normal no drainage EARS:TMS clear with good light reflex. THROAT: Pharynx clear, no exudate. NECK: Supple. No adenopathy, no masses. RESPIRATORY: Airway patent, respirations nonlabored. Clear to auscultation bilaterally, no rales, rhonchi, wheezing. CARDIOVASCULAR: Regular rate and rhythm without murmurs rubs or gallops. ABDOMINAL: Soft, nontender, nondistended, normal bowel sounds MUSCULOSKELETAL: Moves all extremities. Strength/ROM intact, No edema, No calf tenderness. NEURO: Alert. Cranial nerves II through XII intact. Good gait. Good coordination SKIN: Raised erythematous and slightly rough rash to left thigh. No crepitus, no tenderness to palpation. Course Cou
[2022-03-13 20:04] LABS: Basophils Percent Auto 0.2 % (0.2-1.2); Eosinophils Percent Auto 0.1 % (0-4.4); Hematocrit 39.4 % (37.0-47.0); Hemoglobin 13.2 g/dL (12.0-15.0); Immature Granulocyte Absolute 0.07 K/mm3 (0.00-0.031); Immature Granulocyte Percent A 0.4 % (0-0.5); Lymphocytes Absolute Auto 1.97 K/mm3 (0.9-3.2); Lymphocytes Percent Auto 12.3 % (18.3-44.2); Mean Corpuscular HGB Conc 33.5 g/dl (32-36); Mean Corpuscular Volume 101.5 fl (80-100); Mean Platelet Volume 9.1 fl (7.4-10.4); Monocytes Absolute Auto 0.7 K/mm3 (0.1-0.6); Monocytes Percent Auto 4.4 % (2.6-8.5); Neutrophils Absolute Auto 13.2 K/mm3 (1.3-6.7); Neutrophils Percent Auto 82.6 % (45.5-73.1); Platelet Count Result 215 k/mm3 (150-375); Red Blood Count 3.88 M/mm3 (4.2-5.4); Red Cell Distribution Width 12.8 % (11.5-14.5)
[2022-03-13 20:13] LABS: Lactic Acid Reflex 1.4 mmol/L (0.7-2.1)
[2022-03-13 20:14] LABS: Alanine Aminotransferase 18 U/L (4-35); Albumin Level 4.5 g/dL (3.5-5.1); Alkaline Phosphatase 165 U/L (38-126); Anion Gap 13 mmol/L (8-16); Aspartate Amino Transferase 27 U/L (14-36); Bilirubin,Total 0.3 mg/dL (0.2-1.3); Blood Urea Nitrogen 7 mg/dL (7-17); Carbon Dioxide 22 mmol/L (22-30); Chloride 97 mmol/L (98-107); Estimated CRCL calculation 76 ml/min; Estimated Glomerular Filt Rate > 60; Glucose 108 mg/dL (65-110); Lipase 84 U/L (23-300); Sodium 132 mmol/L (137-145)
[2022-03-13 20:16] VITALS: BP 111/88; PULSE 83; RESP 16; O2SAT 100
[2022-03-13] MEDS: SODIUM CHLORIDE 0.9% IV 1,000 ML 999 ML IV CONT (20:20)
[2022-03-13] MEDS: HYDROmorphone HCL INJ (*CRX) 1 MG/ML SYR 0.5 MG IV PUSH (20:21)
[2022-03-13 20:44] LABS: Ethanol 33 mg/dL (<10)
[2022-03-13] MEDS: POTASSIUM CHLORIDE 20 MEQ PACKET (FOR LIQUID) 40 MEQ PO (20:56)
[2022-03-13 21:00] LABS: Hepatitis B Surface Antigen Negative (Negative)
[2022-03-13 21:00] LABS: Appearance Urine Clear (Clear); Bilirubin Urine Negative (Negative); Blood Urine Negative (Negative); Color Urine Yellow (Yellow); Glucose Urine UA Negative (Negative); Ketones Urine Negative (Negative); Leukocyte Esterase Ur Trace LEU/UL (Negative); Nitrate Urine Negative (Negative); Protein Urine Negative (Negative); Urobilinogen Urine 0.2 mg/dL (<2.0)
[2022-03-13 21:06] LABS: HAV RESULT Negative (Negative); Hepatitis B Core IgM Result Negative (Negative)
[2022-03-13 21:06] LABS: Mucus Urine Rare /lpf; Squamous Epithelial Cell Urine Occasional /hpf (Few); WBC Urine 0-3 /hpf
[2022-03-13 21:08] LABS: Add Urine Microscopic? YES
[2022-03-13 21:18] LABS: Hepatitis C Virus Antibody Negative (Negative)
== END 2022-03-13 22:24 | disposition home or self-care (01) ==
PROVIDERS: Emergency Provider Emergency Medicine; PCP Internal Medicine Gastroenterology
DX: R10.84 Generalized abdominal pain (principal); R21 Rash and other nonspecific skin eruption; K86.1 Other chronic pancreatitis; K74.60 Unspecified cirrhosis of liver; Z85.44 Personal history of malignant neoplasm of other female genital organs; F17.210 Nicotine dependence, cigarettes, uncomplicated; F10.10 Alcohol abuse, uncomplicated; Y90.1 Blood alcohol level of 20-39 mg/100 ml; K29.70 Gastritis, unspecified, without bleeding
CPT/HCPCS: 36415; 74177; 80053; 80074; 80307; 81001; 83605; 83690; 85025; 87040; 96365; 96375; 99284; A9270; J0696; J1170; J7030; Q9967

== ENCOUNTER 2022-08-20 19:08 | Emergency (ER) | payer OTHER, SELFPAY ==
[2022-08-20 19:22] VITALS: BP 148/15; PULSE 105; RESP 18; TEMP 36.2; O2SAT 100
--- NOTE | 2022-08-20 21:49 | PC.NURSE ---
Pt left around 2148
== END 2022-08-20 21:39 | disposition left against medical advice (07) ==
LOC: ANHED 21:58
PROVIDERS: PCP Internal Medicine Gastroenterology
DX: M79.652 Pain in left thigh (principal)
CPT/HCPCS: 99199

== ENCOUNTER 2025-07-14 21:32 | Emergency (ER) | payer OTHER, SELFPAY ==
[2025-07-14 21:34] VITALS: BP 137/94; PULSE 108; RESP 24; TEMP 36.9; O2SAT 99
--- OUTSIDE RECORDS SUMMARY | 2025-07-14 21:35 | XMS_ITS ---
Author Organization [facility] [address] Address [address] [place] [address] Care Team Providers Care Hr Assistant Name Role Phone Patel Larios MD Unavailable [phone] Randy Boyce MD Unavailable [phone] Jimenez Willard MD Primary Care Provider Active Problems Patient Care Coordination No te Formatting of this note migh t be different from the original. Referring provider: Dr. Patel Larios Ms. Marjorie Smith is a 59-year-old with a lung nodule. 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 She went on to receive postoperative radiation therapy completed in August of 2024. She also has a history of stage IIIA vulvar carcinoma in 2018 and is status post radical vulvectomy and bilateral pelvic lymph node dissection. On 12/11/2024 the patient underwent a PET scan which showed a new markedly hypermetabolic left apical pulmonary nodule, highly suspicious for metastatic disease. This is less likely a new lung primary given the rapid development. Post radiation changes are thought to be unlikely given focality. There is an additional 4 mm left upper lobe lung nodule adjacent to an airway too small to characterize on PET. There are postsurgical changes of a total rhinectomy and bilateral neck dissection without evidence of residual disease in the resection bed. There is decreased uptake along the left vulvectomy surgical bed is presumably postsurgical. Patient has a history of alcohol dependence and chronic pancreatitis. She is a current smoker. Patient is getting scheduled for pulmonary function testing prior to her appointment today. Patient presents today for further surgical evaluation. Problem Noted Date Diagnosed Date Left upper lobe pulmonary nodule 01/21/2025 Encounter for follow-up exam ination after completed treatment for malignant neoplasm 09/26/2024 Personal history of irradiation 09/26/2024 Squamous cell carcinoma of nasal cavity 06/07/20 24 Neck mass 05/24/2024 Primary squamous cell carcinoma of nasal cavity 05/24/2024 Cancer Staging:Clinical stage from 05/24/2024:Stage III(cT2, cN1, cM0) - Signed by Cornel Singh MD on 06/11/2024 Vulvar cancer, carcinoma 10/12/2013 Cancer Staging:Pathologic stage from 02/03/2018:FIGO Stage IIIA(i), calculated as Stage IIIA(T1b, N1b, cM0) - Signed by Cornel Singh MD on 06/11/2024 Current Treatment and Therapy Plans No current plan information found. Past Treatment and Therapy Plans No past plan information found. Radiation Treatments (No Episode) * Course [id number]/06/2024 - 09/17/2024 Treatment Period Energy Fraction Dose Fractions Total Dose Plans Planned L HN 08/06/2024 - 09/17/2024 200 30 / 6,000 Reference Points Delivered PTV_6000 08/06/2024 - 09/17/2024 6,000 Lifetime Dose Tracking * Chemical Lifetime Dose Automatic Entry Manual Entr y DLP 704 mGycm 704 mGycm 0 mGycm
--- OUTSIDE RECORDS SUMMARY | 2025-07-14 21:35 | XMS_ITS | Clinical Summary ---
Author Organization [facility] Address [address] [place] [id number] Care Team Providers Care Can Patcher Name Role Phone Unavailable Primary Care Provider Unavailabl e Social History Tobacco Use Types Packs/Day Years Used Date Smoking Tobacco: Never Assessed Comments Unknown Sex and Gender Information Value Date Recorded Sex Assigned at Not on file Legal Sex Female 4:16 PM CDT Gender Identity Not on file Sexual Orientation Not on file Plan of Treatment Health Maintenance Due Date Last Done Comments Cervical Cancer Screening Pa p Smear (Age 30 to 64) Every 3 Years 1966 Colorectal Cancer Screening Colonoscopy (10 Years) 1966 Annual Physical 1969 Hepatitis C 1984 DTaP, Tdap and Td Vaccines ( 1 - Tdap) 1985 Cervical Cancer Screening Pa p with HPV Testing (Age 30 to 64) Every 5 Years 1996 Cervical Cancer Screening with HPV 1996 Mammogram Screening 2006 Pneumococcal Vaccine: 50+ Ye ars (1 of 1 - PCV) 2016 Zoster Vaccines (1 of 2) 2016 COVID-19 Vaccine (2023-2 5 season) 2024 Meningococcal B Vaccine Aged Out No l onger eligible based on patient's age to complete this topic Meningococcal Vaccine Aged Out No sandra elzbieta eligible based on patient's age to complete this topic RSV Immunizations Under 20 Months Aged Out No longer eligible based on patient's age to complete this topic
--- OUTSIDE RECORDS SUMMARY | 2025-07-14 21:35 | XMS_ITS | Clinical Summary ---
Author Organization [facility] Address [address] [place] [address] Care Team Providers Care Excelsior Machine Feeder Name Role Phone Unknown, Provider Primary Care Provider Unavaila ble Source Comments [facility],non-owned Affiliates and Associated Physician Practices is amultiple site organization consisting of ambulatory clinics and hospital sitesin [place]. This disclosure is being madepursuant to the Care Everywhere program and may not contain all information available regarding this patient. Last updated 18.[facility] Allergies No known active allergies Medications * Be aware that medications may not be up to date on this document. Alwaysverify current medications with the patient. melatonin 3 MG tablet Take 6 mg by mouth nightly as needed for Insomnia Active multivitamin daily tablet Take 1 tablet by mouth once daily 9 Active omeprazole (PRILOSEC) 20 MG capsule Take 1 capsule by mouth 2 times daily,before breakfast and supper 60 capsule 2 9 Active senna-docusate (SENOKOT-S) 8.6-50 MG tablet Take 2 tablets by mouth once daily 60 tablet 9 Active oxyCODONE, immediate release, (Roxicodone) 5 MG tabletIndications :Alcohol withdrawal syndrome without complication (HCC),Acute pancreatitis, unspecified complication status, unspecified pancreatitis type (HCC) Take 1 (one) tablet by mouth every 6 hours as needed 8 tablet 3 Active Active Problems Patient Care Coordination No te Formatting of this note migh t be different from the original. 57 female with hx chronic pancreatitis and alcohol abuse presented to [facility] with abd pain found to have lipase 960, normal wbc, minimal LFT elevation. CT abd/pelvis showed stranding of pancreatic head and also stones in the main pancreatic duct. Vitals stable and u Gi consulted. No signs of alcohol withdrawal at this time. Fluids, pain meds. Problem Noted Date Diagnosed Date Alcohol withdrawal 12/14/2022 Tobacco use disorder 12/14/2022 Acute on chronic pancreatitis 12/11/2022 Acute pancreatitis, unspecif ied complication status, unspecified pancreatitis type 10/14/2022 Alcohol-induced acute pancreatitis 06/16/2019 Acute pancreatitis 03/21/2019 Alcohol dependence with delirium 02/15/2018 Dysuria 02/11/2018 Wound infection after surgery, initial encounter 02/11/2018 Vulva cancer 02/03/2018 Malignant neoplasm of vulva 01/10/2018 Rash and other nonspecific skin eruption 015 Vulvar intraepithelial neoplasia (HUNTER) grade 3 1 12/12/2012 Social History Tobacco Use Types Packs/Day Years Used Date Smoking Tobacco: Every Day Cigarettes Smokeless Tobacco: Never Tobacco Cessation:Ready to Q uit: Not Asked; Counseling Given: Not Answered Comments:maybe 2 or 3 cigarettes per day Alcohol Use Standard Drinks/Week Comments Yes 0 (1 standard drink = 0.6 oz pur e alcohol) 1125 mL of liquor daily AUDIT-C Answer Date Recorded Q1: How often do you have a drink containing alcohol? 4 or more times a week 12/11/2022 Q2: How many drinks containi ng alcohol do you have on a typical day when you are drinking? 3 or 4 Q3: How often do you have si x or more drinks on one occasion? Less than monthly 12/11/2022 Overall Financial Resource Strain (CARDIA) Answe r Date Recorded How hard is it for you to pa y for the very basics like food, housing, medical care, and heating? Not hard at all 12/11/2022 [facility] - Occupational Stress Questionnaire Answer Date Recorded Do you feel stress - tense, restless, nervous, or anxious, or unable to sleep at night because your mind is troubled all the time - these days? Only a little 12/11/2022 Hunger Vital Sign Answer Date Recorded Within the past 12 months, y ou worried that your food would run out before you got the money to buy more. Never true 12/11/19 23 Within the past 12 months, t he food you bought just didn't last and you didn't have money to get more. Never true 12/11/2022 PRAPARE - Transportation Answer Date Re corded In the past 12 months, has l ack of transportation kept you from medical appointments or from getting medications? No 11/28 In the past 12 months, has l ack of transportation kept you from meetings, work, or from getting things needed for daily living? No 12/11/2022 Housing Stability Vital Sign Answer Wyatt e Recorded In the last 12 months, was t here a time when you were not able to pay the mortgage or rent on time? No 12/11/2022 In the last 12 months, how many places have you lived? 1 12/11/2022 In the last 12 months, was t here a time when you did not have a steady place to sleep or slept in a nursing home (including now)? No 12/11/2022 Comments No Sex and Gender Information Value Date Recorded Sex Assigned at Not on file Legal Sex Female 6:03 PM INSIDE SALES RE[employer] Gender Identity Female 02/11/2018 4:38 PM CDT Sexual Orientation Not on file Last Filed Vital Signs Vital Sign Reading Time Taken Comments Blood Pressure 118/65 12/15/2022 12:12 PM [employer]IDE SAL[employer] RE[employer]UITER Pulse 91 12/15/2022 12:12 PM INSIDE SALES RECRUITER Temperature 37.8 C (100.1 F) 12/15/2022 12:12 PM [employer] SALES RE[employer]UITER Respiratory Rate 18 12/15/2022 12:12 PM INSIDE SALES RECRUITER Oxygen Saturation 98% 12/15/2022 12:12 PM INSIDE SALES RECRUITER Inhaled Oxygen Concentration - - Weight 69.9 kg (154 lb) 12/10/2022 1:53 PM INSIDE SALES RECRUITER Height 170.2 cm (5' 7) 12/10/2022 1:53 PM [employer]IDE SALES RE[employer]UITER Body Mass Index 24.12 12/10/2022 1:53 PM INSIDE SALES RECRUITER Plan of Treatment Health Maintenance Due Date Last Done Comments COLOGUARD (AGES 45-75) - COL ON CA SCREENING 1966 COLON MONITORING 1966 COLONOSCOPY - COLON CA SCREENING 1966 CT COLONOGRAPHY - COLON CA SCREENING 1966 Colorectal Cancer Screening 1966 FIT - COLON CA SCREENING 1966 FLEX SIG - COLON CA SCREENING 1966 MAMMOGRAM 1966 DTAP/TDAP/TD VACCINES (1 - Tdap) 1985 HEPATITIS B VACCINE (1 of 3 - 19+ 3-dose series) 1985 PNEUMOCOCCAL VACCINE 50+ (1 of 2 - PCV) 1985 PAP SMEAR 1987 ZOSTER VACCINE (1 of 2) 2016 LIPID TESTING 07/27/2024 07/27/2019 COVID-19 VACCINE (4 - 2023-2 5 season) 2024 10/25/2021, 03/12/2021, 02/05/2021 DEPRESSION SCREENING 11/28/2024 INFLUENZA VACCINE (#1) 2025 09/01/2022 HEPATITIS C SCREENING Completed 08/03/2019 , 08/03/2019 HIV SCREENING Completed 08/03/2019 HIB VACCINE Aged Out No longer eligi ble based on patient's age to complete this topic HPV VACCINE Aged Out No longer eligi ble based on patient's age to complete this topic MENINGOCOCCAL (Group B) VACCINE SHARED DECISION-MAKING Aged Out No longer eligible based on patient's age to complete this topic MENINGOCOCCAL GROUPS A/C/Y/W VACCINE Aged Out No longer eligible b ased on patient's age to complete this topic Insurance [employer] [facility] [place] [place] [address] Advance Directives * Full Code (Latest Code Status on File) Date Activated Date Inactivated Comments 12/11/2022 12:19 AM 12/15/2022 4:16 PM * Full Code Date Activated Date Inactivated Comments 06/17/2019 5:00 AM 06/21/2019 4:06 PM * Full Code Date Activated Date Inactivated Comments 02/12/2018 4:59 PM 03/17/2018 5:58 PM * Full Code Date Activated Date Inactivated Comments 02/11/2018 8:37 PM 02/12/2018 4:59 PM * Full Code Date Activated Date Inactivated Comments 02/03/2018 5:38 PM 02/07/2018 5:47 PM Care Teams Excelsior Machine Feeder Relationship Specialty Start Date End Date Unknown, Provider PCP - General 03/20/18
--- OUTSIDE RECORDS SUMMARY | 2025-07-14 21:35 | XMS_ITS | Clinical Summary ---
Author Organization [facility] Address [address] [place] [address] Phone Care Team Providers Care Senior Care Assistant Name Role Phone Jimenez Willard MD Primary Care Provider Medications oxyCODONE-acetami nophen (Percocet) 5-325 mg tabletIndications :Alcohol-induced acute pancreatitis, unspecified complication status Take 1 Tablet by mouth every 6 hours as needed for Pain, Moderate. Max Daily Amount: 4 Tablets 6 Tablet 09/01/2022 1:48 PM CDT 2 Active Active Problems Problem Noted Date Diagnosed Date Hyponatremia 08/31/2022 Alcohol-induced acute pancreatitis 08/28/2022 Transaminitis 05/26/2022 Mesenteric adenitis 05/26/2022 Acute on chronic pancreatitis 05/26/2022 Hypokalemia 05/26/2022 History of alcohol withdrawal delirium 2 Liver mass 07/25/2019 Alcoholic cirrhosis 07/24/2019 Macrocytic anemia 07/24/2019 Leukocytosis 07/24/2019 Dehydration 07/24/2019 Severe protein-calorie malnutrition 07/05/2019 Alcohol-induced acute pancreatitis with uninfect ed necrosis 07/04/2019 Alcohol abuse 07/04/2019 Tobacco abuse 07/04/2019 Fluid collection of pancreas 07/04/2019 Abdominal pain 07/04/2019 Pancreatic pseudocyst Immunizations Immunization Administration Dates Next Due (ADACEL/BOOSTRIX)(10 YR UP) TDAP VACCINE, 0.5ML, IM 08/03/2019 (PNEUMOVAX 23)(50 YRS UP) PN EUMOCOCCAL POLYSACCHARIDE (PPV23) 0.5 ML, IM 08/03/2019 (PREVNAR 20)(6 WKS UP) PNEUM OCOCCAL CONJUGATE VACCINE 20-VALENT (PCV20), POLYSACCHARIDE [id number] CONJUGATE, ADJUVANT 0.5 ML (PF) IM 09/01/2022(Deferred: - patient did not want to wait anymore and walked out) INFLUENZA VACCINE QUADRIVALE NT 6 MOS UP PF IM 09/01/2022 Family History Medical History Relation Name Comments Parkinson's Disease Father Alcohol abuse Mother Colon Cancer Neg Hx Relation Name Status Comments Father Mother Social History Tobacco Use Types Packs/Day Years Used Date Smoking Tobacco: Every Day Cigarettes Smokeless Tobacco: Never Alcohol Use Standard Drinks/Week Comments Yes 0 (1 standard drink = 0.6 oz pur e alcohol) rum Comments No Sex and Gender Information Value Date Recorded Sex Assigned at Not on file Legal Sex Female 1:43 PM CDT Gender Identity Not on file Sexual Orientation Not on file Last Filed Vital Signs Vital Sign Reading Time Taken Comments Blood Pressure 115/75 09/01/2022 12:33 PM CDT Pulse 80 09/01/2022 12:33 PM CDT Temperature 36.7 C (98.1 F) 09/01/2022 12:33 PM CDT Respiratory Rate 18 09/01/2022 12:33 PM CDT Oxygen Saturation 100% 09/01/2022 12:33 PM CDT Inhaled Oxygen Concentration - - Weight 70.3 kg (155 lb) 08/28/2022 10:36 PM CDT Height 170.2 cm (5' 7) 08/28/2022 10:36 PM CDT Body Mass Index 24.28 08/28/2022 10:36 PM CDT Plan of Treatment Health Maintenance Due Date Last Done Comments HEPATITIS B VACCINES (1 of 3 - 19+ 3-dose series) 1985 HPV/Cotest (21-29) 1987 CERVICAL CANCER SCREENING 1996 HPV/Cotest (30-65) 1996 PAP SMEAR 1996 BREAST CANCER SCREENING 2006 COLORECTAL SCREENING 2011 Colorectal Cancer Screening 2011 FIT-DNA Q 3 years 2011 FIT/FOBT Q 1 year 2011 Flex Sig/CT Colonography Q 5 years 2011 ZOSTER VACCINE (1 of 2) 2016 COVID-19 Vaccine (3 - 2024-25 season) 2024, 02/05/2021 INFLUENZA VACCINE (#1) 2025 09/01/2022 DTAP/TDAP/TD VACCINES (2 - Td or Tdap) 08/03/2029 Medical Devices Implanted Type Area Muskrat Trapper Device Identifier Shelf Expiration Date Model / Serial / Lot Stent Bili Cttn-Lng 10fr 7cm [id number] - [id number] Implanted:Qty : 1 on 07/26/2019 by Elian Galo MD at [facility] Stent N/A: Bile Duct COOK- ENDOSCOPY - BRIAN[employer]COOK [id number] 03/02/2022 [id number] / / [id number] Stent Pncrtc Geenen 7fr 9cm [id number] - [id number] Implanted:Qty : 1 on 07/26/2019 by Elian Galo MD at [facility] Stent N/A: Pancreas COOK- ENDOSCOPY - BRIAN[employer]OOK [id number] 05/14/2022 [id number] / / [id number] Stent Bili Cmps Bds Fr 5cm [id number] - [id number] Implanted:Qty : 1 on 07/31/2019 by Elian Galo MD at [facility] Stent N/A: Pancreas COOK- ENDOSCOPY - [employer]RIAN[employer]COOK [id number] 04/04/2022 [id number] / / [id number] Stent Pncrtc Geenen 7fr 12cm [id number] - [id number] Implanted:Qty : 1 on 07/31/2019 by Elian Galo MD at [facility] Stent N/A: Pancreas COOK- ENDOSCOPY - BRIAN[employer]COOK [id number] 02/14/2022 [id number] / / [id number] Stent Pncrtc Johlin 8.5fr 22cm [id number] - [id number] Implanted:Qty : 1 on 07/31/2019 by Elian Galo MD at [facility] Stent N/A: Bile Duct COOK- ENDOSCOPY - [employer]RIAN[employer]OOK [id number] 06/18/2022 [id number] / / [id number] Stent Pncrtc Geenen 7fr 12cm [id number] - [id number] Implanted:Qty : 1 on 08/08/2019 by Elian Galo MD at [facility] Stent N/A: Wojciech BERRY [id number] 02/14/2022 [id number] / / [id number] Insurance [employer] [facility] [employer] MEDICAID RX [employer] Medicare Part D RX [employer] PLANS (INTERNAL) [facility] RX [facility] Commercial Advance Directives For more information, please contact: [phone] * Full Code (Latest Code Status on File) Date Activated Date Inactivated Comments 08/28/2022 10:30 PM 09/01/2022 5:08 PM * Full Code Date Activated Date Inactivated Comments 05/26/2022 3:44 AM 05/28/2022 7:22 PM * Full Code Date Activated Date Inactivated Comments 07/24/2019 9:55 PM 08/17/2019 4:58 PM * Full Code Date Activated Date Inactivated Comments 07/04/2019 9:17 PM 07/06/2019 2:42 PM Care Teams Senior Care Assistant Relationship Specialty Start Date End Date Jimenez Willard MD [address] [place] [address] PCP - General Gastroenterology 08/24/19
--- OUTSIDE RECORDS SUMMARY | 2025-07-14 21:35 | XMS_ITS | Patient Health Record ---
Author Organization [facility] Address [address] [place] [address] Care Team Providers Care Fashion Marketer Name Role Phone Thor Garcia Primary Care Provider [phone] Reason For Referral No Information Immunizations Vaccine Route Administration Date Status Comme nts COVID-19 Moderna 1ST IM Intramuscular 02/05/2021 Administered EUA given. Isis ent tolerated well. COVID-19 Moderna 2nd IM Intramuscular 03/12/2021 Administered Plan Of Treatment No Information Insurance Providers Payer Name Payer Address Payer Phone Subscriber Number Group Number Insured Name Patient Relationship to Insured Coverage Start Date Coverage End Date [facility] Attn Claims Department [address] [place] [address] [id number] Marjorie Smith Self - patient is the insured 1 [facility] Attn Claims Department [address] [place] [address] [id number] Francoisdamon Josemy Self - patient is the insured 1
--- OUTSIDE RECORDS SUMMARY | 2025-07-14 21:35 | XMS_ITS | Encounter Summary ---
Author Organization [facility] Address [address] [place] [address] [place] [address] Care Team Providers Care Pastry Finisher Name Role Phone Unknown, Provider Primary Care Provider Unavaila ble Encounter Details Date Type Department Care Team (Late st Contact Info) Description 04/25/2018 Lab Requisition [facility] Care Pathology Lab [address] [place] [address] Molina Burnett MD Illness Social History Tobacco Use Types Packs/Day Years Used Date Smoking Tobacco: Every Day Cigarettes Smokeless Tobacco: Never Alcohol Use Standard Drinks/Week Comments Yes 0 (1 standard drink = 0.6 oz pur e alcohol) occassional Comments No Sex and Gender Information Value Date Recorded Sex Assigned at Not on file 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 Answer Date of Assessment Author No 02/11/2018 10:56 PM CDT Fátima Starr RN * Is person blind or have serious difficulty seeing? Answer Date of Assessment Author No 02/11/2018 10:56 PM KHARIT Fátima Starr RN * Does person have serious difficulty walking/climbing stairs? Answer Date of Assessment Author No 02/11/2018 10:56 PM KHARIT Fátima Starr RN * Does person have difficulty dressing/bathing? Answer Date of Assessment Author No 02/11/2018 10:56 PM Fátima De La Torre RN * Does person have difficulty doing errands alone? Answer Date of Assessment Author No 02/11/2018 10:56 PM CDT Fátima Starr RN documented as of this encounter Mental Status * Does person have difficulty concentrating/remembering/making decisions? Answer Entry Date Author No 02/11/2018 10:56 PM CDT Fátima Starr RN documented in this encounter Plan of Treatment Not on file documented as of this encounter Procedures Procedure Name Priority Date/Time Associated Diagnosis Comments PATHOLOGY TISSUE Routine 04/19/2018 1:38 PM CDT Illness documented in this encounter Results * PATHOLOGY TISSUE (04/19/2018 1:38 PM CDT) Case Report Surgical Pathology Report Case: [id number] Authorizing Provider: Molina Burnett MD Collected: 04/19/2018 01:38 PM Pathologist: Jocelyne Worley MD Received: 04/25/2018 01:39 PM Specimen: Vulva Biopsy 04/26/2018 11:02 PM T [facility] PATHOLOGY [facility] Final Diagnosis Vulva, biopsy: - Granulation tissue - No evidence of atypia or malignancy 04/26/2018 11:02 PM [facility] PATHOLOGY LAB at 2302 CDT Microscopic Description and Comment Microscopic examination substantiates the final diagnosis. 04/26/2018 11:02 PM [facility] Clinical History None provided 04/26/2018 11:02 PM [facility] Gross Description The specimen is received in one formalin-filled container labeled with the patient's name, Marjorie Smith, and vulvar bx and consists of an unoriented portion of firm yellow-villalpando tissue measuring 0.8 cm in greatest dimension which is entirely submitted in cassette A1. TF/cmb 04/26/2018 11:02 PM [facility] Disclaimer The performance characteristics of all immunohistochemical and indirect immunofluorescence stains (if any) cited in this report were determined by the Histopathology Laboratory of [facility]. Some of these tests were developed by our own laboratory and have not been cleared or approved by the US Food and Drug Administration. The FDA does not require this test to go through premarket FDA review. These tests are used for clinical purposes. They should not be regarded as investigational or for research. This laboratory is certified under the Clinical Laboratory Improvement Amendments (CLIA) as qualified to perform high complexity clinical laboratory testing. This case has been personally reviewed and interpreted by the attending (teaching) pathologist. 04/26/2018 11:02 PM CDT [facility] Embedded Images 04/26/2018 11:02 PM CDT [facility] Pathology/Cytolo gy BIOPSY OF VULVA / Unknown 04/19/2018 1:38 PM CDT 04/25/2018 1:39 PM CDT Molina Burnett MD LAB - PATHOLOGY/CYTOLOGY OR DERABLES Final Result [facility] [address] [phone] documented in this encounter Visit Diagnoses Diagnosis Illness Other unknown and unspecified cause of morbidity or mortality documented in this encounter Care Teams Pastry Finisher Relationship Specialty Start Date End Date Unknown, Provider PCP - General 03/20/18 documented as of this encounter
--- OUTSIDE RECORDS SUMMARY | 2025-07-14 21:35 | XMS_ITS | Continuity of Care Document ---
Author Organization [facility] Address [id number] [place] [address] [address] [place] [address] Phone Care Team Providers Care Patternmaker Apprentice Wood Name Role Phone Spears OD, Jaguar Unavailable Unavailable Procedures Procedure Date Special Reports Or Forms Office/outpatient Visit, Est Advance Directives Directive Yes / No Effective Date File Name No Information Encounters Encounter Description Practice Location Reason(s) For Visit Diagnoses Date Provider Providers Copied on Encounter [facility], [id number] [place] [address] [address], [place], [place], [id number], tel:[phone] [facility] No Information [phone] Spears OD Jaguar. [address] , [address], [place], [place], [facility], [place]. tel:[phone] Office/outpat ient Visit, Est [facility], [address] [place] [address] [address], [place], [place], [id number], [place] tel:[phone] [facility] No Information [phone] Krishnasamy Jeffery. [address], [place], [place], [facility], [place]. tel:[phone] Family History Family Member Type Diagnosis Age At Onset No Information Payers Payer name Insurance type Covered libertarian ID Authoriza tion(s) Medicaid [facility] [id number] Social History Type Description Quantity Date Captured Comments Sex Female Smoking Status No Information Chief Complaint And Reason For Visit No Information Reason For Referral Reason For Referral No Information History Of Present Illness Encounter Date Complaint History Of Prese nt Illness No Information Functional Status Date Functional Assessmen t No Information Instructions Date Instruction Additional Infor mation No Information Assessments Type Assessment Date No Information Patient Care Teams Name Effective Dates (start - stop) Status Members No Information
--- OUTSIDE RECORDS SUMMARY | 2025-07-14 21:35 | XMS_ITS | Clinical Summary ---
Author Organization [facility] [address] [facility] Address [address] [place] [address] Care Team Providers Care Safety Lead Name Role Phone Patel Larios MD Unavailable [phone] Randy Boyce MD Unavailable [phone] Jimenez Willard MD Primary Care Provider Allergies No known active allergies Medications albuterol HFA (PROVENTIL HFA,VENTOLIN HFA,PROAIR HFA) 90 mcg/actuation inhalerIndication s:Chronic Obstructive Pulmonary Disease Inhale 2 puffs every 4 (four) hours as needed for shortness of breath 02/16/20 24 Active tiZANidine (ZANAFLEX) 4 mg tabletIndications :Muscle Spasm Take 1 tablet (4 mg total) by mouth 3 (three) times a day as needed for muscle spasms 05/17/20 24 Active Creon 12,000-38,000 -60,000 unit capsuleIndication s:exocrine pancreatic insufficiency Take 2 capsules by mouth 3 (three) times a day with meals 05/07/20 24 Active naloxone (NARCAN) 4 mg/actuation spray,non-aerosol Administer 1 spray into affected nostril(s) as needed for opioid reversal Call 911. Administer a single spray in one nostril. Repeat every 3 minutes as needed if no or minimal response. 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),Throat pain Take 1 tablet (600 mg total) by mouth every 8 (eight) hours as needed for pain (throat pain) 90 tablet 11 01/01/20 25 026 Active triamcinolone (KENALOG) 0.1 % creamIndications: Eczema, unspecified type Apply topically 2 (two) times a day Apply to the affected area twice a day as directed 30 g 01/09/20 25 Active pentoxifylline ER (TRENtal) 400 mg CR tabletIndications :Intermittent Claudication Take 1 capsule along with Vit E 400 international units twice daily with breakfast and dinner 60 tablet 11 05/20/20 25 Active gabapentin (NEURONTIN) 600 mg tabletIndications :Neuropathic Pain Take 1 tablet (600 mg total) by mouth 3 (three) times a day 90 tablet 11 05/20/20 25 026 Active oxyCODONE (ROXICODONE) 15 mg immediate release tabletIndications :Pain Take 1 tablet (15 mg total) by mouth 2 (two) times a day 60 tablet 06/17/20 25 025 Active oxyCODONE (ROXICODONE) 15 mg immediate release tabletIndications :Pain Take 1 tablet (15 mg total) by mouth 2 (two) times a day 60 tablet 05/20/20 25 025 Discontin ued(Reord er) Active Problems Patient Care Coordination No te [...] Signed by Cornel Singh MD on 06/11/2024 Encounters Date Type Department Care Team Description 07/08/2025 Telephone [facility] [address] [place] [phone] Yesenia Maxwell NP 07/05/2025 Documentation [facility] [address] [place] [phone] Angela Malin, DUKEY RIDER 06/18/2025 Orders Only [facility] [address] [place] [phone] Yesenia Maxwell NP Cancer related pain (Primary Dx); Malignant neoplasm of nasal cavity (HCC); Lymphedema 06/17/2025 1:30 PM CDT Telemedicine [facility] [address] [place] [phone] Ramírez Larson MD PhD 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); Lymphedema; 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 06/17/2025 Documentation [facility] [address] [place] [phone] Angela Malin, DUKEY RIDER 06/14/2025 Documentation [facility] [address] [place] [phone] Angela Malin, DUKEY RIDER 05/29/2025 Telephone [facility] [address] [phone] Kinsey Brewer RN 05/29/2025 Telephone [facility] [address] [facility] [address] [place] [address] Marilyn Kaur NP 05/20/2025 2:30 PM CDT Office Visit [facility] [address] [place] [phone] Yesenia Maxwell NP Malignant neoplasm of nasal cavity (HCC) (Primary Dx); 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; Personal history of irradiation; Cancer related pain 05/20/2025 11:50 AM CDT - 05/20/2025 11:59 PM CDT Hospital Encounter [facility] [address] [place] [address] Neck mass Discharge Disposition: Discharge to home or self care 05/20/2025 Documentation [facility] [address] [place] [address], [place] [phone] Angela Malin, [facility] 05/17/2025 Documentation [facility] [address] [place] [phone] Angela Malin, [facility] 05/16/2025 11:00 AM CDT Office Visit [facility] Floor [address] [place] [address] Patel Larios MD 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); Neck mass 05/16/2025 7:26 AM CDT - 05/16/2025 11:59 PM CDT Hospital Encounter [facility] [place] [address] [facility] [address] [place] [address] 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) Discharge Disposition: Discharge to home or self care 05/14/2025 Social Work [facility] [address] [place] [address] Loretta Rm, DU[facility] RIDER 05/08/2025 Telephone [facility] [address] [place] [phone] Kinsey Brewer, RN 05/03/2025 Documentation [facility] [address] [place] [phone] Angela Malin, [facility] 05/02/2025 Telephone [facility] [address] [place] [address] Kinsey Brewer, RN Scheduling Appointments 04/23/2025 Telephone [facility] [address] [place] [phone] Yesenia Maxwell NP from Last 3 Months Immunizations Immunization Administration Dates Next Due Influenza, Quadrivalent, Spl it, Preservative Free, Intramuscular 09/01/2022 Pneumococcal Polysaccharide PPV23 08/03/2019 Tdap 08/03/2019 Surgical History Surgery Date Site/Laterality Comments ERCP 08/28/2019 - 09/27/2019 OTHER SURGICAL HISTORY 01/26/2018 - 02/25/2018 Radical Left Hemivulvectomy OTHER SURGICAL HISTORY 02/26/2018 - 03/27/2018 Vulvar Reconstruction Medical History Medical History Date Comments Gall stones Pancreatitis Vaginal cancer (HCC) Family History Medical History Relation Name Comments Prostate cancer Father Emphysema Mother Anesthesia problems Neg Hx Malig Hyperthermia Neg Hx Pseudochol deficiency Neg Hx Relation Name Status Comments Father Mother Social History Tobacco Use Types Packs/Day Years Used Date Smoking Tobacco: Every Day Cigarettes Smokeless Tobacco: Never Tobacco Cessation:Ready to Q uit: No; Counseling Given: No AUDIT-C Answer Date Recorded Q1: How often do you have a drink containing alc ohol? 2-4 times a month 06/25/2024 Q2: How many drinks containi ng alcohol do you have on a typical day when you are drinking? 1 or 2 06/25/2024 Q3: How often do you have si x or more drinks on one occasion? Never 06/25/2024 Personal Safety Answer Date Recorded Have you ever been in or are you currently in a harmful physical or emotional relationship or is someone making you feel afraid or unsafe? Denies 06/25/2024 Comments No Sex and Gender Information Value Date Recorded Sex Assigned at Not on file Legal Sex Female 10:23 AM [employer] Gender Identity Not on file Sexual Orientation Not on file Obstetrics History Last Filed Vital Signs Vital Sign Reading Time Taken Comments Blood Pressure 153/93 05/20/2025 1:37 PM CDT Pulse 85 05/20/2025 1:37 PM CDT Temperature 36.7 C (98.1 F) 05/20/2025 1:37 PM CDT Respiratory Rate 18 05/20/2025 1:37 PM CDT Oxygen Saturation 97% 05/20/2025 1:37 PM CDT Inhaled Oxygen Concentration - - Weight 58.6 kg (129 lb 3.2 oz) 05/20/2025 1:37 P M CDT Height 169.4 cm (5' 6.69) 01/10/2025 11:[address] Body Mass Index 20.42 01/10/2025 11:42 AM [employer]ER Plan of Treatment Health Maintenance Due Date Last Done Comments Breast Cancer Screening-Mammogram 1966 Cervical Cancer Screening 1966 Colon Cancer Screening-Colonoscopy 1966 Depression Screening 1966 Hepatitis C Screening 1966 Hepatitis B Screening 1984 Regular Well Visit/Exam 18-64 1984 Zoster Vaccine (1 of 2) 1985 Pneumococcal vaccine <65 (2 of 2 - PCV) 08/03/2020 08/03/2019 Covid-19 Vaccine (4 - season) 2024 10/25/2021, 03/12/2021, 02/05/2021 Influenza Vaccine (#1) 2025 09/01/2022 DTaP/Tdap/Td Vaccine (2 - Td or Tdap) 08/03/202904/2019 Procedures Procedure Name Priority Date/Time Associated Diagnosis Comments CT SOFT TISSUE NECK W CONTRAST Schedule SANTANA, Read Routine (Patient lives out of area) 05/20/2025 12:14 PM CDT Neck mass CT CHEST W CONTRAST Schedule Routine, Read Routine (OP Routine) 05/16/2025 8:03 AM CDT 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 PARANASAL SINUS MUCOSAL THICKENING. RESECTION OF LEVEL 1 LYMPH NODE ON THE LEFT SIDE WITH POSTSURGICAL CHANGES WITHOUT VISIBLE LOCAL RECURRENCE. NO NEW METASTATIC LYMPH NODES ARE IDENTIFIED. THE SKIN MARKING THE LEFT SUBMANDIBULAR REGION DOES NOT CORRESPOND TO VISIBLE MASS LESION. Electronically signed by: Ok Cortes M.D. Narrative 05/20/2025 12:22 PM CDT EXAMINATION: CT SOFT TISSUE NECK W CONTRAST ORDER DATE: 05/20/2025 12:15 PM HISTORY: History: Neck mass left-sided, difficulty swallowing neck discomfort prior surgery in the neck for tumor removal TECHNIQUE: Spiral post contrasted CT utilizing 69 MLO Optiray 350 with multiplanar reconstructions. FINDINGS: Correlation is made with prior study dated 05/24/2024, at which time a anterior nasal masses seen. Associated level 1B metastasis lymph node. Current examination demonstrates patient to be edentulous. Prevertebral soft tissues are normal. Cervical spondylosis with normal alignment. Transaxial images: Visualized posterior fossa and orbits are normal. The large basal mass seen previously appears to have been resected and treated with bony defect seen in the nasal bones and anterior nasal septum with absence of the previously seen large mass. Opacification of the posterior and middle ethmoids on the left side and left sphenoid sinus as well as bilateral maxillary sinuses. The nasopharyngeal and parapharyngeal soft tissue spaces are normal. Prevertebral soft tissues are normal. Normal vascular enhancement is seen. Parotid glands are somewhat small in size but no focal masses or inflammatory changes seen. Surgical clip seen along the anterior margin of the left sternocleidomastoid muscle along the posterior margin of the parotid gland. Cicatricial clips are seen in the area lingual submandibular space on the left side, status post removal of the previous large lymph node metastasis on the left side. No focal recurrence is seen. Postsurgical scarring seen in the left side of the neck. In the suprahyoid neck, no adenopathy is seen. The tongue and base of tongue appear to be normal with the exception of the left lateral aspect of the tongue with postsurgical changes have extended period no focal masses are however seen Infrahyoid neck demonstrates normal laryngeal cartilages. Thyroid gland is mildly prominent but homogeneous in texture with the right lobe being larger than the left with extension posterior medially. Lung apices as visualized and superior mediastinum suggest COPD. No nodules are seen. The area marked on the skin in the left submandibular region corresponding to palpable mass exhibits no discrete masses. This is the site of prior surgical intervention with scarring with mild thickening of the platysma muscles region. Coronal and sagittal images demonstrate normal alignment of the cervical spine with minor anterior subluxation C4 on C5 with degenerative changes C4-C5 C5-C6 and C6-C7. Facet joint alignment normal with degeneration multiple levels. Craniovertebral junction is normal. Procedure Note Ok Cortes MD - 05/20/2025 EXAMINATION: CT SOFT TISSUE NECK W CONTRAST ORDER DATE: 05/20/2025 12:15 PM HISTORY: History: Neck mass left-sided, difficulty swallowing neck discomfort prior surgery in the neck for tumor removal TECHNIQUE: Spiral post contrasted CT utilizing 69 MLO Optiray 350 with multiplanar reconstructions. FINDINGS: Correlation is made with prior study dated 05/24/2024, at which time a anterior nasal masses seen. Associated level 1B metastasis lymph node. Current examination demonstrates patient to be edentulous. Prevertebral soft tissues are normal. Cervical spondylosis with normal alignment. Transaxial images: Visualized posterior fossa and orbits are normal. The large basal mass seen previously appears to have been resected and treated with bony defect seen in the nasal bones and anterior nasal septum with absence of the previously seen large mass. Opacification of the posterior and middle ethmoids on the left side and left sphenoid sinus as well as bilateral maxillary sinuses. The nasopharyngeal and parapharyngeal soft tissue spaces are normal. Prevertebral soft tissues are normal. Normal vascular enhancement is seen. Parotid glands are somewhat small in size but no focal masses or inflammatory changes seen. Surgical clip seen along the anterior margin of the left sternocleidomastoid muscle along the posterior margin of the parotid gland. Cicatricial clips are seen in the area lingual submandibular space on the left side, status post removal of the previous large lymph node metastasis on the left side. No focal recurrence is seen. Postsurgical scarring seen in the left side of the neck. In the suprahyoid neck, no adenopathy is seen. The tongue and base of tongue appear to be normal with the exception of the left lateral aspect of the tongue with postsurgical changes have extended period no focal masses are however seen Infrahyoid neck demonstrates normal laryngeal cartilages. Thyroid gland is mildly prominent but homogeneous in texture with the right lobe being larger than the left with extension posterior medially. Lung apices as visualized and superior mediastinum suggest COPD. No nodules are seen. The area marked on the skin in the left submandibular region corresponding to palpable mass exhibits no discrete masses. This is the site of prior surgical intervention with scarring with mild thickening of the platysma muscles region. Coronal and sagittal images demonstrate normal alignment of the cervical spine with minor anterior subluxation C4 on C5 with degenerative changes C4-C5 C5-C6 and C6-C7. Facet joint alignment normal with degeneration multiple levels. Craniovertebral junction is normal. IMPRESSION: STATUS POST TREATMENT OF NASAL MASS WITH SURGICAL INTERVENTION IN THE RESECTION BONY DEFECT INVOLVING THE NASAL BONES AND ANTERIOR NASAL SEPTUM. PARANASAL SINUS MUCOSAL THICKENING. RESECTION OF LEVEL 1 LYMPH NODE ON THE LEFT SIDE WITH POSTSURGICAL CHANGES WITHOUT VISIBLE LOCAL RECURRENCE. NO NEW METASTATIC LYMPH NODES ARE IDENTIFIED. THE SKIN MARKING THE LEFT SUBMANDIBULAR REGION DOES NOT CORRESPOND TO VISIBLE MASS LESION. Electronically signed by: Ok Cortes M.D. us Patel Larios MD IM CT PROCEDURES Final Res ult * CT Chest W Contrast (05/16/2025 8:03 AM CDT) Anatomical Region Laterality Modality Body N/A Computed Tomogra phy 05/16/2025 8:31 AM CDT Impressions 05/16/2025 8:40 AM CDT 1. Interval wall thickening of a right upper lung bulla which likely represents infectious process. However, recommend follow-up in 3 months for further characterization. 2. Left upper lung nodule measuring 5 mm remains indeterminate. Continued attention on follow-up imaging. Dictated by: Dariusz Oliva MD The radiology attending physician has personally reviewed this study, and had reviewed and/or edited this written report and agrees with it. Electronically signed by: Humberto Coe M.D. Narrative 05/16/2025 8:40 AM CDT EXAMINATION: Computed tomography of the chest with intravenous contrast HISTORY: 60-year-old with squamous cell carcinoma nasal cavity. Assess for metastatic disease. TECHNIQUE: Transaxial computed tomographic images of the chest were obtained with intravenous contrast according to the standard protocol after the uneventful administration of 69 mL Opti-Ray 350 intravenous contrast. COMPARISON: 01/29/2025 CT. FINDINGS: There is no thoracic lymphadenopathy. Thoracic aorta and main pulmonary artery are of normal. Heart size is upper limits of normal. No pericardial effusion. No acute abnormality of the imaged upper abdomen. Pancreatic calcifications compatible chronic pancreatitis. Upper lobe predominant emphysema. No pleural effusion. No pneumothorax. No new or suspicious pulmonary nodule. A 5 mm pulmonary nodule in the left upper lung at table position -1044.3 is unchanged. New wall thickening of a right upper lung bulla at table position -1038.3. No suspicious osseous lesion. Procedure Note Humberto Coe MD - 05/16/2025 EXAMINATION: Computed tomography of the chest with intravenous contrast HISTORY: 60-year-old with squamous cell carcinoma nasal cavity. Assess for metastatic disease. TECHNIQUE: Transaxial computed tomographic images of the chest were obtained with intravenous contrast according to the standard protocol after the uneventful administration of 69 mL Opti-Ray 350 intravenous contrast. COMPARISON: 01/29/2025 CT. FINDINGS: There is no thoracic lymphadenopathy. Thoracic aorta and main pulmonary artery are of normal. Heart size is upper limits of normal. No pericardial effusion. No acute abnormality of the imaged upper abdomen. Pancreatic calcifications compatible chronic pancreatitis. Upper lobe predominant emphysema. No pleural effusion. No pneumothorax. No new or suspicious pulmonary nodule. A 5 mm pulmonary nodule in the left upper lung at table position -1044.3 is unchanged. New wall thickening of a right upper lung bulla at table position -1038.3. No suspicious osseous lesion. IMPRESSION: 1. Interval wall thickening of a right upper lung bulla which likely represents infectious process. However, recommend follow-up in 3 months for further characterization. 2. Left upper lung nodule measuring 5 mm remains indeterminate. Continued attention on follow-up imaging. Dictated by: Dariusz Oliva MD The radiology attending physician has personally reviewed this study, and had reviewed and/or edited this written report and agrees with it. Electronically signed by: Humberto Coe M.D. Patel Larios MD IMG CT PROCEDURES Final Res ult from Last 3 Months Insurance [facility] Advance Directives For more information, please contact: [phone] * Full Code (Latest Code Status on File) Date Activated Date Inactivated Comments 06/25/2024 5:38 PM 06/27/2024 7:56 PM Care Teams Safety Lead Relationship Specialty Start Date End Date Jimenez Willard MD [address] [place] [id number] PCP - General Gastroenterology 07/18/24 Patel Larios MD [address] [facility] [address] [place] [address] Medical Oncologist/Instructional Materials Director Medical Oncology 06/05/24 Randy Boyce MD [address] [facility] [address] [place] [address] Surgeon Otolaryngology 06/05/24
[2025-07-15 01:07] VITALS: BP 127/96; PULSE 96; RESP 19; O2SAT 100
[2025-07-15 01:10] VITALS: BP 136/84; PULSE 96; RESP 16; O2SAT 98
[2025-07-15 01:42] LABS: Hematocrit 35.5 % (37.0-47.0); Hemoglobin 12.3 g/dL (12.0-15.0); Immature Granulocyte Percent A 0.2 % (0-0.5); Immature Platelet Fraction Pct 1.7 % (0.9-11.2); Lymphocytes Absolute Auto 0.84 K/mm3 (0.9-3.2); Mean Corpuscular HGB Conc 34.6 g/dl (32-36); Mean Corpuscular Hemoglobin 32.1 pg (26-34); Mean Corpuscular Volume 92.7 fl (80-100); Nucleated Red Blood Cells Absolute Auto 0.000 K/mm3 (0.0-0.012); Nucleated Red Blood Cells Perc 0.0 % (0.0-0.2); Platelet Count Result 252 k/mm3 (150-375); Red Blood Count 3.83 M/mm3 (4.2-5.4); White Blood Count 6.5 K/mm3 (4.5-10.0)
--- NOTE | 2025-07-15 02:13 | ED.ABDPAIN ---
HPI - Abdominal Pain General Chief Complaint: Abdominal Pain Stated Complaint: abdominal pain Time Seen by Provider: 07/15/25 02:03 History of Present Illness HPI narrative: 60-year-old female with a history of alcohol abuse, alcoholic liver cirrhosis, alcoholic pancreatitis. She presents to the emergency department with epigastric abdominal pain radiating towards her back that feels similar to her chronic pancreatitis. States she was drinking today. Denies any recent illnesses otherwise. No nausea, fever, chills, sick contacts. No diarrhea, constipation or urinary complaints. Was otherwise in her normal state of health. Related Data Home Medications ?Medication ?Instructions ?Recorded ?Confirmed ?Last Taken ?Type escitalopram oxalate 10 mg tablet 10 mg PO DAILY 03/13/22 03/13/22 Unknown History hydrocodone 7.5 mg-acetaminophen 7.5 - 325 tablet PO Q6H 03/13/22 03/13/22 Unknown History 325 mg tablet Allergies Allergy/AdvReac Type Severity Reaction Status Date / Time No Known Allergies Allergy Unknown Verified 08/20/22 19:21 Review of Systems Review of Systems: As reviewed above in HPI PMFSH Past Medical History Medical History Cirrhosis of liver Vulvar cancer (2019) Delirium tremens Alcohol withdrawal seizure Pseudocyst of pancreas (2019) Necrotizing pancreatitis (2019) Chronic pancreatitis Alcohol abuse Tobacco dependence Alcohol abuse Surgical History Surgical History History of endoscopic retrograde cholangiopancreatography With history of stent placement. History of section History of partial hysterectomy History of gynecologic surgery Resection of vulvar cancer. Family History Family History Mother Emphysema lung Father Parkinson disease Social History Social History Social History: Surrogate decision maker: Efrain Stern (son) or Mark Duran (significant other). Code status: Full code. Smoking packs per day: 1 Smoking cigarettes per day: 20.0 Smoking status: Current every day smoker Tobacco type: cigarettes Alcohol intake: current Alcohol use details: 4-6 shots of rum per day. Substance use: never Additional living arrangements comments: The patient lives in [place]. Exam Narrative: GENERAL: [Well-appearing, well-nourished, and in no acute distress.] HEAD: [Normocephalic, atraumatic.] EYES: [PERRLA and EOMI.] NECK: Supple. CHEST: [Clear to auscultation. No respiratory distress.] HEART: [Regular rate and rhythm]. No murmur heard. [Normal peripheral pulses.] ABDOMEN: [Soft, nondistended], minimally tender in the epigastrium, [No rigidity or guarding] EXTREMITIES: Normal range of motion. [No edema.] SKIN: Warm, dry, no rash. NEURO: [No focal deficits]. Alert and oriented [x3.] PSYCH: [Normal mood and affect.] Course Vital Signs Vital signs: Vital Signs Temperature 36.9 C 07/14/25 21:34 Pulse Rate 108 H 07/14/25 21:34 Respiratory Rate 24 H 07/14/25 21:34 Blood Pressure 137/94 H 07/14/25 21:34 Pulse Oximetry 99 07/14/25 21:34 Oxygen Delivery Room Air 07/14/25 21:34 Temperature 36.9 C 07/14/25 21:34 Pulse Rate 96 07/15/25 01:10 Respiratory Rate 16 07/15/25 01:10 Blood Pressure 136/84 07/15/25 01:10 Pulse Oximetry 98 07/15/25 01:10 Oxygen Delivery Room Air 07/15/25 01:10 MDM - Abdominal Pain MDM Narrative Medical decision making narrative: 60-year-old female with a history of alcohol abuse, alcoholic liver cirrhosis, alcoholic pancreatitis. She presents to the emergency department with epigastric abdominal pain radiating towards her back that feels similar to her chronic pancreatitis. States she was drinking today. Denies any recent illnesses otherwise. No nausea, fever, chills, sick contacts. No diarrhea, constipation or urinary complaints. Was otherwise in her normal state of health. Patient is not in any acute distress and has normal vital signs here. No tachycardia, fever, hypoxemia blood pressure concerns. Prior to evaluating her in the room she was noted to be playing on her phone and not appearing in any discomfort or pain however when I entered the room she began grabbing her abdomen and appearing in pain. Symptoms sound consistent with alcoholic pancreatitis which she has a chronic history of. Will obtain laboratory studies including lipase, CBC, CMP. No indications for CT imaging at this time, will trial morphine and fluids and re-evaluated her. Laboratory studies are reassuring. No leukocytosis or anemia. Normal platelet count. Electrolytes are largely unremarkable. Normal potassium. Normal creatinine, normal glucose. LFTs unremarkable. Mildly elevated lipase indicative of acute on chronic pancreatitis. Patient given additional dose of narcotic pain medications as well as Tylenol. Safe for discharge at this time with outpatient PCP follow-up. Medical Records Attestation: I reviewed the patient's medical records. Lab Data Attestation: I reviewed the patient's lab results. 07/15/25 01:30 07/15/25 02:26 Labs: Lab Results 07/15/25 07/15/25 Range/Units 01:30 02:26 WBC 6.5 (4.5-10.0) K/mm3 RBC 3.83 L (4.2-5.4) M/mm3 Hgb 12.3 (12.0-15.0) g/dL Hct 35.5 L (37.0-47.0) % MCV 92.7 (80-100) fl MCH 32.1 (26-34) pg MCHC 34.6 (32-36) g/dl RDW 12.2 (11.5-14.5) % Plt Count 252 (150-375) k/mm3 MPV 8.8 (7.4-10.4) fl Immature Gran % (Auto) 0.2 (0-0.5) % Neut % (Auto) 75.9 H (45.5-73.1) % Lymph % (Auto) 12.9 L (18.3-44.2) % [place] % (Auto) 6.9 (2.6-8.5) % Eos % (Auto) 3.8 (0-4.4) % Baso % (Auto) 0.3 (0.2-1.2) % Lymph # (Auto) 0.84 L (0.9-3.2) K/mm3 [place] # (Auto) 0.5 (0.1-0.6) K/mm3 Eos # (Auto) 0.3 (0-0.3) K/mm3 Baso # (Auto) 0.0 (0.0-0.1) K/mm3 Abs Immat Gran (auto) 0.01 (0.00-0.031) K/mm3 Absolute Neuts (auto) 5.0 (1.3-6.7) K/mm3 Absolute Nucleated RBC 0.000 (0.0-0.012) K/mm3 Nucleated RBC % 0.0 (0.0-0.2) % % Immature Plt Fraction 1.7 (0.9-11.2) % Sodium 132 L (137-145) mmol/L Potassium 3.4 (3.4-5.0) mmol/L Chloride 96 L (98-107) mmol/L Carbon Dioxide 26 (22-30) mmol/L Anion Gap 10 (4-12) mmol/L BUN 10 (7-17) mg/dL Creatinine 0.61 L (0.7-1.0) mg/dL Estim Creat Clear Calc Not Reportable Estimated GFR > 60 (59 - ) Glucose 107 (65-110) mg/dL Calcium 9.3 (8.4-10.2) mg/dL Total Bilirubin 0.6 (0.2-1.3) mg/dL AST 37 H (14-36) U/L ALT 26 (6-35) U/L Alkaline Phosphatase 103 (38-126) U/L Total Protein 7.9 (6.3-8.2) g/dL Albumin 4.3 (3.5-5.1) g/dL Lipase 676 H (23-300) U/L Discharge Plan Discharge Clinical Impression: Acute on chronic pancreatitis, Alcoholic pancreatitis Patient Disposition: Home Condition: Stable Instructions: Antibiotic Form, Pancreatitis (ED), Low Fat Diet (ED), Clear Liquid Diet (ED) Additional Instructions: You have a very mildly elevated lipase indicative of acute on chronic pancreatitis which seems to be the cause of your pain. Recommendations are for Tylenol and ibuprofen as well as low fat and clear liquid diet for several days until the inflammation subsides. No urgent or emergent concerns identified today, no signs of infection or electrolyte abnormalities. No signs of organ dysfunction otherwise. Follow-up with regular care specialists and return with any emergent concerns. Patient Language: Luxembourger Prescriptions: No Action hydrocodone-acetaminophen 7.5-325 mg tablet 7.5 - 325 tablet PO Q6H escitalopram oxalate 10 mg tablet 10 mg PO DAILY triamcinolone acetonide 0.1 % lotion 1 applic topical BID Qty: 60 0RF hydrocodone-acetaminophen 5-325 mg tablet 1 tablet PO Q8H PRN (Reason: pain) Qty: 10 0RF cephalexin 250 mg capsule 250 mg PO Q8H 7 Days Qty: 21 0RF Follow-up/Referrals: Sudheer,Jimenez Mata MD [Primary Care Provider] - Time of Disposition: 05:17
[2025-07-15] MEDS: MORPHINE SULFATE (*CRX) 4 MG/ML INJ IV PUSH (02:25)
[2025-07-15] MEDS: LACTATED RINGERS 1,000 ML 999 ML IV CONT ×2 (02:30→02:31)
--- OUTSIDE RECORDS SUMMARY | 2025-07-15 02:39 | XMS_ITS | Clinical Summary ---
Author Organization [facility] [address] Address [address] [place] [address] Care Team Providers Care Hull Grinder Name Role Phone Patel Larios MD Unavailable [phone] Randy Boyce MD Unavailable [phone] Jimenez Willard MD Primary Care Provider Allergies [...] Type Department Care Team Description 07/08/2025 Telephone [facility] Radiation Oncology [address] [place] [phone] Yesenia Maxwell NP 07/05/2025 Documentation [facility] Oncology [address] [place] [phone] Angela Malin, FRAME OPENER 06/18/2025 Orders Only [facility] Radiation Oncology [address] [place] [phone] Yesenia Maxwell NP Cancer related pain (Primary Dx); Malignant neoplasm of nasal cavity (HCC); Lymphedema 06/17/2025 1:30 PM CDT Telemedicine [facility] Radiation Oncology [address] [place] [phone] Ramírez Larson MD PhD 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); Lymphedema; 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 06/17/2025 Documentation [facility] Oncology [address] [place] [phone] Angela Malin, FRAME OPENER 06/14/2025 Documentation [facility] Oncology [address] [place] [phone] Angela Malin, FRAME OPENER 05/29/2025 Telephone [facility] Oncology [address] [place] [phone] Kinsey Brewer RN 05/29/2025 Telephone [facility] Oncology [address] [facility] [place] [address] Marilyn Kaur NP 05/20/2025 2:30 PM CDT Office Visit [facility] Radiation Oncology [address] [place] [phone] Yesenia Maxwell NP Malignant neoplasm of nasal cavity (HCC) (Primary Dx); 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; Personal history of irradiation; Cancer related pain 05/20/2025 11:50 AM CDT - 05/20/2025 11:59 PM CDT Hospital Encounter [facility] Radiology [address] [place] [address] Neck mass Discharge Disposition: Discharge to home or self care 05/20/2025 Documentation [facility] Oncology [address] [place] [address], [place] [address] Angela Malin, [facility] 05/17/2025 Documentation [facility] Oncology [address] [place] [phone] Angela Malin, [facility] 05/16/2025 11:00 AM CDT Office Visit [facility] Floor [address] [place] [address] Patel Larios MD 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); Neck mass 05/16/2025 7:26 AM CDT - 05/16/2025 11:59 PM CDT Hospital Encounter [facility] [address] [facility] [address] [place] [address] 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) Discharge Disposition: Discharge to home or self care 05/14/2025 Social Work [facility] On[facility] [address] [place] [address] Loretta Rm, FRAME OPENER 05/08/2025 Telephone [facility] Oncology [address] [place] [phone] Kinsey Brewer, RN 05/03/2025 Documentation [facility] Oncology [address] [place] [phone] Angela Malin, [facility] 05/02/2025 Telephone [facility] Oncology [address] [place] [address] Kinsey Brewer, RN Scheduling Appointments 04/23/2025 Telephone [facility] Radiation Oncology [address] [place] [address] Yesenia Maxwell NP from Last 3 Months [...] on file Legal Sex Female 10:23 AM INFORMATION ASSURANCE ANALYST Gender Identity Not on file Sexual Orientation [...] Body Mass Index 20.42 01/10/2025 11:42 AM INFORMATION ASSURANCE ANALYST Plan of Treatment Health Maintenance Due Date [...] Res ult from Last 3 Months Insurance [facility] Advance Directives For more information, please contact: [phone] * Full Code (Latest Code Status on File) Date Activated Date Inactivated Comments 06/25/2024 5:38 PM 06/27/2024 7:56 PM Care Teams Hull Grinder Relationship Specialty Start Date End Date Jimenez Willard MD [address] [place] [address] PCP - General Gastroenterology 07/18/24 Patel Larios MD [address] [facility] [address] [place] [address] Medical Oncologist/Point Of Care Technician Medical Oncology 06/05/24 Randy oByce MD [address] [facility] [address] [place] [address] Surgeon Otolaryngology 06/05/24
--- OUTSIDE RECORDS SUMMARY | 2025-07-15 02:39 | XMS_ITS | Continuity of Care Document ---
Author Organization [facility] Address [address] [place] [address] [address] [place] [address] Phone Care Team Providers Care Licensed Funeral Director And Embalmer Name Role Phone Spears OD, Jaguar Unavailable Unavailable Procedures Procedure Date Special Reports Or Forms Office/outpatient Visit, Est Advance Directives Directive Yes / No Effective Date File Name No Information Encounters Encounter Description Practice Location Reason(s) For Visit Diagnoses Date Provider Providers Copied on Encounter [facility], [address] [place] [address] [address], [place], [place], [id number], tel:[phone] [facility] No Information 3-200 9 Spears OD Jaguar. [address] [facility] , [address], [place], [place], [facility], [place]. tel:[phone] Office/outpat ient Visit, Est [facility], [address] [place] [address] [address], [place], [place], [id number], [place] tel:[phone] [facility] No Information 9-200 9 Krishnasamy Jeffery. [address] [facility] [address], [place], [place], [facility], [place]. tel:[phone] Family History Family Member Type Diagnosis Age At Onset No Information Payers Payer name Insurance type Covered alliance party ID Authoriza tion(s) Medicaid [facility] [id number] Social History Type Description Quantity Date Captured [...]
--- OUTSIDE RECORDS SUMMARY | 2025-07-15 02:39 | XMS_ITS | Clinical Summary ---
Author Organization [facility] Address [address] [place] [address] Phone Care Team Providers Care Automotive Machinist Apprentice Name Role Phone Jimenez Willard MD Primary [...] PNEUM OCOCCAL CONJUGATE VACCINE 20-VALENT (PCV20), POLYSACCHARIDE [id number] CONJUGATE, ADJUVANT 0.5 ML (PF) IM 09/01/2022(Deferred: [...] Tdap) 08/03/2029 Medical Devices Implanted Type Area Sheep Sorter Device Identifier Shelf Expiration Date Model / Serial / Lot Stent Bili Cttn-Lng 10fr 7cm [id number] - [id number] Implanted:Qty : 1 on 07/26/2019 by Elian Galo MD at [facility] Stent N/A: Bile Duct COOK- ENDOSCOPY - BRIAN-COOK [id number] 03/02/2022 [id number] / / [id number] Stent Pncrtc Geenen 7fr 9cm [id number] - [id number] Implanted:Qty : 1 on 07/26/2019 by Elian Galo MD at [facility] Stent N/A: Pancreas COOK- ENDOSCOPY - BRIAN-COOK [id number] 05/14/2022 [id number] / / [id number] Stent Bili Cmps Bds Fr 5cm [id number] - [id number] Implanted:Qty : 1 on 07/31/2019 by Elian Galo MD at [facility] Stent N/A: Pancreas COOK- ENDOSCOPY - BRIAN-COOK [id number] 04/04/2022 [id number] / / [id number] Stent Pncrtc Geenen 7fr 12cm [id number] - [id number] Implanted:Qty : 1 on 07/31/2019 by Elian Galo MD at [facility] Stent N/A: Pancreas COOK- ENDOSCOPY - BRIAN-COOK [id number] 02/14/2022 [id number] / / [id number] Stent Pncrtc Johlin 8.5fr 22cm [id number] - [id number] Implanted:Qty : 1 on 07/31/2019 by Elian Galo MD at [facility] Stent N/A: Bile Duct COOK- ENDOSCOPY - BRIAN-COOK [id number] 06/18/2022 [id number] / / [id number] Stent Pncrtc Geenen 7fr 12cm [id number] - [id number] Implanted:Qty : 1 on 08/08/2019 by Elian Galo MD at [facility] Stent N/A: Wojciech BERRY [id number] 02/14/2022 [id number] / / [id number] Insurance [facility] MEDICAID RX MER[employer]IAN[employer] Medicare Part D RX [employer]D PLANS (INTERNAL) [facility] RX [facility] Commercial Advance Directives For more information, please contact: [phone] * Full Code (Latest Code Status on File) Date Activated Date Inactivated Comments 08/28/2022 10:30 PM 09/01/2022 5:08 PM * Full Code Date Activated Date Inactivated Comments 05/26/2022 3:44 AM 05/28/2022 7:22 PM * Full Code Date Activated Date Inactivated Comments 07/24/2019 9:55 PM 08/17/2019 4:58 PM * Full Code Date Activated Date Inactivated Comments 07/04/2019 9:17 PM 07/06/2019 2:42 PM Care Teams Automotive Machinist Apprentice Relationship Specialty Start Date End Date Jimenez Willard MD [address] [place] [address] PCP - General Gastroenterology 08/24/19
--- OUTSIDE RECORDS SUMMARY | 2025-07-15 02:39 | XMS_ITS | Patient Health Record ---
Author Organization [facility] Address [address] [place] [address] Care Team Providers Care Motion Picture Projectionist Name Role Phone Thor Garcia Primary Care Provider [phone] Reason For Referral No Information Immunizations Vaccine Route Administration Date Status Comme nts COVID-19 Moderna 2nd IM Intramuscular 03/12/2021 Administered COVID-19 Moderna 1ST IM Intramuscular 02/05/2021 Administered EUA given. Isis ent tolerated well. Plan Of Treatment No Information Insurance Providers Payer Name Payer Address Payer Phone Subscriber Number Group Number Insured Name Patient Relationship to Insured Coverage Start Date Coverage End Date [facility] Attn Claims Department [address] [place] [address] [id number] Marjorie Smith Self - patient is the insured 1 [facility] Attn Claims Department [address] [place] [id number] Marjorie Smith Self - patient is the insured 1
--- OUTSIDE RECORDS SUMMARY | 2025-07-15 02:39 | XMS_ITS | Clinical Summary ---
Author Organization [facility] Address [address] [place] [address] Care Team Providers Care Agricultural Production Engineer Name Role Phone Unavailable Primary Care Provider [...]
--- OUTSIDE RECORDS SUMMARY | 2025-07-15 02:39 | XMS_ITS | Clinical Summary ---
Author Organization [facility] Address [address] [place] [address] Care Team Providers Care Admitting Manager Name Role Phone Unknown, Provider Primary Care Provider Unavaila ble Source Comments [facility],non-owned Affiliates and Associated Physician Practices is amultiple site organization consisting of ambulatory clinics and hospital sitesin [place], [place], [place] and [place]. This disclosure is being madepursuant to the Care Everywhere program and may not contain all information available regarding this patient. Last updated 18.[facility] Allergies No known active allergies Medications * [...] chronic pancreatitis and alcohol abuse presented to [facility] with abd pain found to [...] and heating? Not hard at all 12/11/2022 [facility] Porter of Occupat ional Health - Occupational Stress [...] place to sleep or slept in a mcc (including now)? No 12/11/2022 Comments No Sex and Gender Information Value Date Recorded Sex Assigned at Not on file Legal Sex Female 6:03 PM STATION ATTENDANT Gender Identity Female 02/11/2018 4:38 PM CDT Sexual Orientation Not on file Last Filed Vital Signs Vital Sign Reading Time Taken Comments Blood Pressure 118/65 12/15/2022 12:12 PM STATION ATTENDANT Pulse 91 12/15/2022 12:12 PM STATION ATTENDANT Temperature 37.8 C (100.1 F) 12/15/2022 12:12 PM STATION ATTENDANT Respiratory Rate 18 12/15/2022 12:12 PM STATION ATTENDANT Oxygen Saturation 98% 12/15/2022 12:12 PM STATION ATTENDANT Inhaled Oxygen Concentration - - Weight 69.9 kg (154 lb) 12/10/2022 1:53 PM STATION ATTENDANT Height 170.2 cm (5' 7) 12/10/2022 1:53 PM STATION ATTENDANT Body Mass Index 24.12 12/10/2022 1:53 PM STATION ATTENDANT Plan of Treatment Health Maintenance Due Date [...] patient's age to complete this topic Insurance [employer] [facility] [place] [address] Advance Directives * Full Code (Latest Code [...] 5:38 PM 02/07/2018 5:47 PM Care Teams Admitting Manager Relationship Specialty Start Date End Date Unknown, Provider PCP - General 03/20/18
--- OUTSIDE RECORDS SUMMARY | 2025-07-15 02:39 | XMS_ITS ---
Author Organization [facility] [address] [facility] Address [address] [place] [address] Care Team Providers Care Design Leader Name Role Phone Patel Larios MD Unavailable [phone] Randy Boyce MD Unavailable [phone] Jimenez Willard MD Primary Care Provider Active [...]
--- OUTSIDE RECORDS SUMMARY | 2025-07-15 02:39 | XMS_ITS | Encounter Summary ---
Author Organization [facility] Address [address] [place] [address] [place] [address] Care Team Providers Care Urban Gardening Specialist Name Role Phone Unknown, Provider Primary Care Provider Unavaila ble Encounter Details Date Type Department Care Team (Late st Contact Info) Description 04/25/2018 Lab Requisition [facility] Care Pathology Lab [address] [place] [address] Molina Burnett MD Illness Social History Tobacco Use Types Packs/Day Years Used Date Smoking Tobacco: Every Day Cigarettes Smokeless Tobacco: Never Alcohol Use Standard Drinks/Week Comments Yes 0 (1 standard drink = 0.6 oz pur e alcohol) occassional Comments No Sex and Gender Information Value Date Recorded Sex Assigned at Not on file Legal Sex Female 6:03 PM TURN LASTER Gender Identity Female 02/11/2018 4:38 PM CDT [...] CDT) Case Report Surgical Pathology Report Case: [id number] Authorizing Provider: Molina Burnett MD Collected: 04/19/2018 01:38 PM Pathologist: Jocelyne [place] MD Received: 04/25/2018 01:39 PM Specimen: Vulva Biopsy 04/26/2018 11:02 PM T [facility] PATHOLOGY LAB Final Diagnosis Vulva, biopsy: - Granulation tissue - No evidence of atypia or malignancy 04/26/2018 11:02 PM [facility] PATHOLOGY LAB at 2302 CDT Microscopic Description and Comment Microscopic examination substantiates the final diagnosis. 04/26/2018 11:02 PM [facility] PATHOLOGY [facility] Clinical History None provided 04/26/2018 11:02 PM [facility] PATHOLOGY LAB Gross Description The specimen is received in one formalin-filled container labeled with the patient's name, Marjorie Smith, and vulvar bx and consists of an unoriented portion of firm yellow-villalpando tissue measuring 0.8 cm in greatest dimension which is entirely submitted in cassette A1. TF/cmb 04/26/2018 11:02 PM [facility] PATH[facility] Disclaimer The performance characteristics of all immunohistochemical and indirect immunofluorescence stains (if any) cited in this report were determined by the Histopathology Laboratory of [facility]. Some of these tests were [...] attending (teaching) pathologist. 04/26/2018 11:02 PM CDT [facility] PATH[facility] Embedded Images 04/26/2018 11:02 PM CDT [facility] PATH[facility] Pathology/Cytolo gy BIOPSY OF VULVA / Unknown 04/19/2018 1:38 PM CDT 04/25/2018 1:39 PM CDT Molina Burnett MD LAB - PATHOLOGY/CYTOLOGY OR DERABLES Final Result [facility] PATHOLOGY LAB [address] [phone] documented in this encounter Visit Diagnoses Diagnosis Illness Other unknown and unspecified cause of morbidity or mortality documented in this encounter Care Teams Urban Gardening Specialist Relationship Specialty Start Date End Date Unknown, Provider PCP - General 03/20/18 documented as of this encounter
--- NOTE | 2025-07-15 02:42 | PC.NURSE ---
patient stated she will wait until her IV fluids are finished then try to give a urine sample.
[2025-07-15 02:50] LABS: Alanine Aminotransferase 26 U/L (6-35); Albumin Level 4.3 g/dL (3.5-5.1); Alkaline Phosphatase 103 U/L (38-126); Anion Gap 10 mmol/L (4-12); Aspartate Amino Transferase 37 U/L (14-36); Bilirubin,Total 0.6 mg/dL (0.2-1.3); Blood Urea Nitrogen 10 mg/dL (7-17); Calcium 9.3 mg/dL (8.4-10.2); Carbon Dioxide 26 mmol/L (22-30); Chloride 96 mmol/L (98-107); Estimated Glomerular Filt Rate > 60; Glucose 107 mg/dL (65-110); Lipase 676 U/L (23-300); Potassium 3.4 mmol/L (3.4-5.0); Sodium 132 mmol/L (137-145); Total Protein 7.9 g/dL (6.3-8.2)
--- NOTE | 2025-07-15 03:46 | PC.NURSE ---
Anytime this RN walks passed patients room, she is seen playing with her phone and does not appear to be in any distress but anytime this RN enters pt room, she grabs her stomach and starts moaning in pain. EDP made aware. Prior to giving pt a dose of morphine, pt stated Morphine never does works for me and 2 minutes after giving medication, pt stated the morphine has not done anything for her pain.
[2025-07-15] MEDS: HYDROmorphone HCL INJ (*CRX) 1 MG/ML SYR IV PUSH (03:59)
[2025-07-15] MEDS: ACETAMINOPHEN 500 MG TABLET 1000 MG PO (05:09)
[2025-07-15 05:39] VITALS: BP 124/73; PULSE 78; RESP 20; O2SAT 99
== END 2025-07-15 05:20 | disposition home or self-care (01) ==
PROVIDERS: Emergency Provider Student in an Organized Health Care Education/Training Program; PCP Internal Medicine Gastroenterology
DX: K85.20 Alcohol induced acute pancreatitis without necrosis or infection (principal); K86.0 Alcohol-induced chronic pancreatitis; F10.10 Alcohol abuse, uncomplicated; Y90.9 Presence of alcohol in blood, level not specified; K70.30 Alcoholic cirrhosis of liver without ascites; F17.210 Nicotine dependence, cigarettes, uncomplicated; Z85.44 Personal history of malignant neoplasm of other female genital organs; Z90.711 Acquired absence of uterus with remaining cervical stump
CPT/HCPCS: 36415; 80053; 83690; 85025; 85055; 96361; 96374; 96375; 99284; A9270; J1171; J2270; J7120